=== PATIENT | female | born 1955 | race Caucasian/White ===

== ENCOUNTER 2016-12-06 05:06 | Inpatient (IN) | payer BC ==
[2016-10-21 08:00] VITALS: BMI 29.0
[2016-10-21 08:36] LABS: BASO % 0.4 %; BASO ABS # 0.02 K/uL (0-0.2); COMPLETE YES; EOS % 2.3 %; HEMATOCRIT 40.7 % (37-47); IG% 0.2 %; LYMPH % 30.7 %; LYMPH ABS # 1.62 K/uL (1.2-3.4); MEAN CELL VOLUME 88.1 fL (80-100); MEAN CORPUSCULAR HEMOGLOBIN 30.5 pg (25-34); MEAN CORPUSCULAR HGB CONC 34.6 g/dl (32-36); MEAN PLATELET VOLUME 9.2 fL (7.4-10.4); NEUT % 59.4 %; PLATELET COUNT 273 K/uL (130-400); RED BLOOD COUNT 4.62 M/uL (4.2-5.4); WHITE BLOOD COUNT 5.27 K/uL (4.8-10.8)
--- NOTE | 2016-10-21 08:37 | PAT Medication Instructions ---
Service Date Oct 21, 2016. Current Home Medication List Aspirin (Aspirin Ec), 81 MG PO HS Cholecalciferol (Vitamin D), 1 CAP PO HS Diclofenac (Voltaren), 75 MG PO HS Medication Instructions For Your Scheduled Surgery - Check with surgeon for instructions: Diclofenac (Voltaren), 75 MG PO HS - Take the following medications as scheduled the night before surgery: Cholecalciferol (Vitamin D), 1 CAP PO HS Aspirin (Aspirin Ec), 81 MG PO HS (okay per surgeon instructions) If you have any questions please call us at [phone] (Bruna Mathew PA-C) or [phone] or [phone]
[2016-10-21 08:46] LABS: PARTIAL THROMBOPLASTIN RATIO 0.9; PROTHROMBIN TIME (PATIENT) 10.5 SECONDS (9.0-12.0)
--- NOTE | 2016-10-21 09:03 | DIAGNOSTIC IMAGING REPORT ---
CHEST PREADMISSION(PA/LAT) CLINICAL HISTORY: Preoperative evaluation COMPARISON STUDY: Chest radiograph February 12, 2012 FINDINGS: Lung volumes are normal. Lungs are clear. There is no pneumothorax or pleural effusion. Cardiac size is normal. Mediastinal contours are normal. There is no evidence of pulmonary edema. IMPRESSION: No acute cardiopulmonary findings. Electronically signed by: Jack Borges M.D. 10/21/2016 9:01 AM
[2016-10-21 09:05] LABS: BUN/CREATININE RATIO 22.4 (10-20); CALCIUM 9.2 mg/dl (8.5-10.1); CREATININE 0.85 mg/dl (0.60-1.20)
--- NOTE | 2016-11-27 22:46 | HISTORY & PHYSICAL EXAMINATION ---
DATE OF ADMISSION: 12/06/2016 CHIEF COMPLAINT: Left knee pain. HISTORY OF PRESENT ILLNESS: The patient is a 61-year-old female, patient of my partner Dr. Howard, who presents for surgical treatment of her left knee. She has got a fairly long history of bilateral knee pain and discomfort, left side has been a bit worse than the right. She has been through extensive conservative treatment including injections and oral medicines which have become less successful over time. The left knee is bothering her more than the right. Pain is mostly medial. She now would like to consider surgery. PAST MEDICAL HISTORY: Noncontributory. PAST SURGICAL HISTORY: None. ALLERGIES: CODEINE WHICH CAUSES NAUSEA. ALSO REPORTS SOME NICKEL ALLERGY. CURRENT MEDICATIONS: Include: 1. Aspirin 81 mg. 2. Premarin. SOCIAL HISTORY: A 61-year-old female. She is . She does not smoke. No alcohol intake. Two children. FAMILY HISTORY: Noncontributory. REVIEW OF SYSTEMS: Negative for diabetes, neurologic problems, vascular problems, bleeding disorders. No history of chest pain or shortness of breath. No history of DVT or PE. PHYSICAL EXAMINATION: GENERAL: Reveals a healthy, pleasant middle-aged female. She looks to be in excellent health. HEENT: Benign. NECK: Supple, no lymphadenopathy. LUNGS: Clear to auscultation. HEART: Regular rate and rhythm. ABDOMEN: Soft, nontender, nondistended. EXTREMITIES: Grossly neurovascularly intact except as follows: Examination of both knees reveals the patient walks with a little bit of waddling gait. She has got varus alignment to both knees. Examination of the left knee reveals tenderness over the medial joint line. Small knee effusion. Range of motion 0-125. No instability. Miguel Ángel's causes pain but no mechanical symptoms. X-RAYS: X-ray of the left knee reveals advanced medial compartment DJD. She has got near complete loss of her medial joint space. ASSESSMENT: A 61-year-old female with advanced bilateral knee degenerative joint disease, left side more symptomatic than right. She has failed conservative treatment. We are initially considering doing a partial knee replacement, but SHE HAS GOT A NICKEL ALLERGY and we do not want to risk any reaction and we will use the Hernández \T\ Nephew zirconium total knee replacement and do a full knee replacement. The risks of cemented total knee replacement were explained to the patient including but not limited to DVT, PE, , infection, neurological injury, vascular injury, bleeding problem, pain, limited range of motion, stiffness, failure to relieve symptoms, incomplete relief of symptoms, need for further surgery in the future, fracture, leg length inequality, nerve palsy, etc. The patient understands and desires to proceed. Informed consent was obtained. As far as discharge plans, she is planning to be discharged to home and using [facility] home health program. We will use Hernández \T\ Nephew zirconium knee arthroplasty.
[2016-12-06] VITALS (10 sets, daily range): BP systolic 91–115; BP diastolic 55–81; PULSE 48–79; TEMP 36.2–36.7; O2SAT 96–100; Ht 160 cm; Wt 76.5 kg
[~2016-12-06] VITALS: Ht 160 cm; Wt 76.5 kg
[~2016-12-06 05:06] MED LIST: ASPI81TA28 PO; CHOL200010 PO; DICL-201 PO
[2016-12-06] MEDS ORDERED: SCOPOLAMINE 1.5 MG TDSY TD SCH (06:00)
[2016-12-06] MEDS ORDERED: BUPIVACAINE LIPOSOME 266 MG, BUPIVACAINE/EPINEPHRINE INJ 50 ML, SODIUM CHLORIDE 0.9% PF... INFIL SCH ×3 (06:00)
[2016-12-06] MEDS ORDERED: ACETAMINOPHEN 500 MG TAB PO SCH (06:00)
[2016-12-06] MEDS ORDERED: FAMOTIDINE 20 MG TAB PO SCH (06:00)
[2016-12-06] MEDS ORDERED: LACTATED RINGER'S 1000ML IV SCH (06:00)
[2016-12-06] MEDS ORDERED: LACTATED RINGER'S 1000ML 1,000 ML IV SCH (06:00)
[2016-12-06] MEDS ORDERED: METOCLOPRAMIDE HCL 10 MG TAB PO SCH (06:00)
[2016-12-06] MEDS ORDERED: GABAPENTIN 300 MG CAP PO SCH (06:00)
[2016-12-06] MEDS ORDERED: CEFAZOLIN 2000 MG/60 ML D5W 60 ML IV SCH (06:00)
[2016-12-06] MEDS ORDERED: BUPIVACAINE 0.5 % 5 MG/1 ML PF 10ML VIAL ONE (06:27)
[2016-12-06] MEDS ORDERED: BUPIVACAINE 0.25% 30 ML VIAL ONE (06:27)
[2016-12-06] MEDS ORDERED: FENTANYL CITRATE INJ 50 MCG/1 ML 2 ML VIAL ONE (06:28)
[2016-12-06] MEDS ORDERED: PROPOFOL IV EMULSION 10 MG/ML 20 ML VIAL IV ONE (06:28)
[2016-12-06] MEDS ORDERED: MIDAZOLAM HCL 1 MG/ML 2ML VIAL ONE ×2 (06:28→07:22)
[2016-12-06] MEDS ORDERED: LIDOCAINE HCL 2% 2 ML VIAL (20MG/ML) ONE ×2 (06:28→07:34)
[2016-12-06] MEDS ORDERED: TRANEXAMIC ACID INJ 1,000 MG in SODIUM CHLORIDE 0.9% 100ML 100 ML IV SCH ×2 (06:30→15:00)
--- NOTE | 2016-12-06 06:47 | History & Physical Bridge Note ---
H&P Re-Evaluation Bridge Note: I have examined the patient, reviewed the History & Physical and in the interval since the performance of the History & Physical I have noted the following changes of clinical significance: No changes noted
[2016-12-06] MEDS ORDERED: BACITRACIN 50000 UNIT VIAL ONE (06:48)
[2016-12-06] MEDS ORDERED: BUPIVACAINE/EPINEPHRINE 0.25% 1:200,000 30 ML VIAL ONE (06:48)
[2016-12-06] MEDS ORDERED: SODIUM CHLORIDE 0.9% PF 50 ML VIAL ONE (06:48)
[2016-12-06] MEDS ORDERED: KETAMINE HCL INJ 50 MG/ML 10 ML VIAL ONE (07:20)
[2016-12-06] MEDS ORDERED: SODIUM CHLORIDE 0.9% INJ 10 ML VIAL ONE (07:44)
[2016-12-06] MEDS ORDERED: PROMETHAZINE HCL INJ 12.5 MG in SODIUM CHLORIDE 0.9% 50ML 50 ML IV PRN (08:15)
[2016-12-06] MEDS ORDERED: FLUMAZENIL 0.1 MG/1 ML 10 ML VIAL IV PRN (08:15)
[2016-12-06] MEDS ORDERED: ONDANSETRON INJ 2 MG/ML 2 ML VIAL IV PRN (08:15)
[2016-12-06] MEDS ORDERED: ATROPINE SULFATE 0.1 MG/ML 5ML SYR IV PRN (08:15)
[2016-12-06] MEDS ORDERED: EpHEDrine SULFATE INJ 50 MG/ML AMP IV PRN (08:15)
[2016-12-06] MEDS ORDERED: NALOXONE HCL 0.4 MG/1 ML VIAL/CARP IV PRN (08:15)
--- NOTE | 2016-12-06 08:35 | [facility] Post Operative Brief Note ---
Immediate Operative Summary Operative Date Dec 06, 2016. Pre-Operative Diagnosis Left knee degenerative joint disease Post-Operative Diagnosis Left knee degenerative joint disease Procedure(s) Performed Left total knee arthroplasty Surgeon Dr. Rober Orozco Medicaid Nurse Surgeon(s) Ruddy Mcneal PA-C Estimated Blood Loss 50 cc Findings Left Knee DJD Fluids (cc crystalloids) 1000 cc Specimens A. Left knee bone and tissue Drains None Anesthesia SPinal Complication(s) None Disposition Recovery Room / PACU
[2016-12-06] MEDS ORDERED: DiphenhydrAMINE HCL 50 MG/ML VIAL IV PRN (08:45)
[2016-12-06] MEDS ORDERED: ZOLPIDEM TARTRATE 5 MG TAB PO PRN (08:45)
[2016-12-06] MEDS ORDERED: METOCLOPRAMIDE HCL INJ 5 MG/ML 2 ML VIAL IV PRN (08:45)
[2016-12-06] MEDS ORDERED: MoRPHine SULFATE 2 MG/ML CARP IV PRN (08:45)
[2016-12-06] MEDS ORDERED: BISACODYL 10 MG SUPP PR PRN (08:45)
[2016-12-06] MEDS ORDERED: ALUMINUM/MAGNESIUM/SIMETH (MAALOX MAX) 30 ML UDC PO PRN (08:45)
[2016-12-06] MEDS ORDERED: MAGNESIUM HYDROXIDE SUSP 30 ML UDC PO PRN (08:45)
--- NOTE | 2016-12-06 09:04 | DIAGNOSTIC IMAGING REPORT ---
TWO VIEWS LEFT KNEE CLINICAL HISTORY: Postoperative examination. FINDINGS: AP and crosstable lateral portable views of the left knee are obtained. A left knee arthroplasty is in near anatomic alignment. There has been undersurface remodeling of the patella. No acute fracture is seen. There are expected postoperative changes around the knee including skin clips, soft tissue edema, and subcutaneous gas. IMPRESSION: Expected postoperative changes status post left knee arthroplasty. No acute fracture is seen. Electronically signed by: Drew Gibbs M.D. 12/06/2016 9:03 AM Dictated Date/Time: 12/06/2016 9:03 AM
--- NOTE | 2016-12-06 09:08 | OPERATIVE REPORT ---
DATE OF OPERATION: 12/06/2016 PREOPERATIVE DIAGNOSIS: Left knee degenerative joint disease. POSTOPERATIVE DIAGNOSIS: Same. PROCEDURE PERFORMED: Left cemented posterior stabilized total knee arthroplasty. SURGEON: Rober Orozco M.D. PLANT BREEDER SCIENTIST: Ruddy Mcneal PA-C. COMPLICATIONS: None. ESTIMATED BLOOD LOSS: 50 mL. FLUID REPLACEMENT: 1000 mL crystalloid fluid replacement. ANESTHESIA: Spinal with adductor canal block. DRAINS: None. SPECIMENS: Left knee sent for pathology. TOURNIQUET TIME: 56 minutes at 300 mmHg. OPERATIVE INDICATIONS: The patient is a 61-year-old female who has had a long history of bilateral knee pain and discomfort, left side greater than right. She has been through extensive conservative treatment. She continued to have persistent pain mostly localized in the medial side of her knee. The patient failed conservative treatment and elected to proceed with total knee arthroplasty. The patient does have a nickel allergy and we used the Hernández \T\ Nephew zirconium total knee arthroplasty as a result of this. OPERATIVE FINDINGS: Operative findings revealed advanced left knee DJD. She had grade 4 [id number] disease of the trochlea as well as the medial femoral condyle and medial tibial plateau pretty extensively. Moderate size joint effusion. She had osteophytes primarily in the medial and posteromedial compartments. OPERATIVE IMPLANTS: Operative implants consisted of: 1. Hernández \T\ Nephew Journey size 4 left posterior stabilized zirconium femoral component. 2. Hernández \T\ Nephew size 2 tibial tray. 3. A 12 mm posterior stabilized polyethylene insert. 4. A 29 x 9 all poly patella. OPERATION AND FINDINGS: OPERATIVE PROCEDURE: The patient was taken to the operating room, identified and placed on the operating table in supine position. All contact areas were appropriately padded. IV antibiotics were provided by anesthesia team. A spinal anesthetic and adductor canal block had been provided in the holding area. Rea catheter was placed in sterile fashion. The left thigh tourniquet was then placed and left lower extremity was then prepped and draped in the usual sterile fashion. The left leg was elevated and exsanguinated with Esmarch and tourniquet was placed at 300 mmHg. An anterior approach of the left knee was then performed through a longitudinal incision centered over the patella. Sharp dissection was carried through the subcutaneous tissues down to the level of the extensor mechanism. A medial parapatellar arthrotomy incision was made. Some subperiosteal dissection was carried out medially. The fat pad was resected from beneath the patellar tendon. The lateral patellofemoral ligament was released. The patella was everted and the knee was flexed. The osteophytes were taken off the distal femur. The ACL and PCL were then released from the distal femur. The tibia subluxated anteriorly. The external tibial alignment jig was then placed in the anterior face of the tibia and adjusted 8 mm medially. Proximal tibial cut was made to remove about 2 mm of bone from the most deficient aspect of the medial tibial plateau. Some osteophytes were taken off medial and posteromedially. The tibia was sized to a size 2. Attention was then drawn to the femur. The distal femur was entered with a sharp drill bit. Intramedullary canal was suctioned. A left 5 degree valgus cutting guide was placed and distal femoral cutting block was pinned in place. Distal femoral cutting block was adjusted take an additional 2 mm of bone off the distal femur then the femur was cut. The femur was then sized. This actually sized to between a 5 and a 6. We did downsize this to a size 4 in order to fit the tibial tray. We did adjust this. The AP cutting block was pinned parallel to the epicondylar axis, which was 3 degrees of external rotation. The anterior cut, anterior cord, posterior cut, posterior chamfer, and then the anterior chamfer cuts were made. The AP cutting block was then removed. The osteophytes posteriorly were removed. The remnants of the medial and lateral menisci were removed. A trial femoral component was placed. The box cutting tool was placed and the box cut was made. The trochlear component was then placed. The tibial tray was then pinned in maximum external rotation and the punch was used to create the defect in proximal tibia for the tibial tray. We then trialed the knee and the 12 mm insert fit most appropriately. Attention was then drawn to the patella. The patella was cleaned of all soft tissues. The patella thickness measured 20 mm cut down to 12. It was sized to a size 29 patella. Lug holes were drilled for a 29 patella. Lateral osteophyte was removed. Patella button was placed. Knee was taken through range of motion and the patella tracked nicely with no thumbs test. Attention was then drawn toward placement of permanent components. All trial components were removed. Bone plug was placed in the distal femur to limit blood loss. A double batch of Palacos G cement was mixed. A left size 4 posterior stabilized femoral component was placed followed by a size 2 tibial tray, a 12 mm posterior stabilized polyethylene insert, 29 x 9 all poly patella. All extraneous cement was removed. The knee was brought out into full extension until cement hardened. A final cement check was then performed. The pericapsular tissues were then injected with 100 mL of a combination of 20 mL of Exparel, 30 mL of normal saline, and 50 mL of 0.25% Marcaine with epinephrine. The patient did receive 1 gram of tranexamic acid. The tourniquet was then let down for final tourniquet time of 56 minutes. Hemostasis was assured with use of electrocautery. The wound was once again irrigated. The extensor mechanism was then closed with a combination of #1 PDS suture and #1 Vicryl suture in a dchdyc-uh-ejybi fashion. Extensor mechanism was checked and found to be intact. Subcutaneous tissues were then closed with 2-0 Dexon suture in a buried interrupted fashion. Skin was closed skin hussein. Leg was then cleaned and dried and a sterile dressing of Xeroform, 4 x 4, sterile cast padding and Chiki bandage were applied. The patient was then transferred to the recovery room in stable condition. The patient tolerated the procedure well with no complications. All needle and sponge counts were correct at the end of the operation. I attest to the content of the Intraoperative Record and any orders documented therein. Any exceptio ns are noted below.
--- NOTE | 2016-12-06 09:18 | Anesthesiology Progress Note ---
Anesthesia Post Op Note Date & Time Dec 06, 2016 at 09:18 Vital Signs Pain Intensity: 0 Vital Signs Past 12 Hours Date Time Temp Pulse Resp B/P Pulse Ox O2 Delivery O2 Flow Rate FiO2 12/06/16 09:11 69 18 92/55 94 Nasal Cannula 2 12/06/16 09:01 36.4 69 16 99/61 96 Nasal Cannula 2 12/06/16 09:00 77 17 106/65 95 Room Air 12/06/16 08:50 70 18 105/63 94 Room Air 12/06/16 08:43 36.1 76 18 110/58 95 Room Air 12/06/16 05:41 36.7 79 18 115/81 97 Room Air Notes Mental Status: alert / awake / arousable, participated in evaluation Pt Amnestic to Procedure: Yes Nausea / Vomiting: adequately controlled Pain: adequately controlled Airway Patency, RR, SpO2: stable & adequate BP & HR: stable & adequate Hydration State: stable & adequate Neuraxial Anesthesia: was administered, sensory block is resolving Anesthetic Complications: no major complications apparent
[2016-12-06] MEDS: ONDANSETRON INJ 2 MG/ML 2 ML VIAL IV PRN (10:22)
[2016-12-06] MEDS: D5W AND 1/2NSS + 20MEQ KCL 1,000 ML IV SCH ×2 (11:01→20:43)
[2016-12-06] MEDS: KETOROLAC TROMETHAMINE 30 MG/ML VIAL IV. SCH ×3 (11:31→23:32)
[2016-12-06] MEDS: FERROUS GLUCONATE 324 MG TAB PO SCH ×2 (12:30→17:38)
[2016-12-06] MEDS: DOCUSATE SODIUM 100 MG CAP PO SCH ×2 (12:45→20:44)
[2016-12-06] MEDS: TAPENTADOL ER 50 MG TABCR PO SCH ×2 (12:46→20:44)
[2016-12-06] MEDS: PANTOprazole SOD 40 MG TAB PO SCH (12:46)
[2016-12-06] MEDS: MULTIVITAMIN TAB PO SCH (12:46)
[2016-12-06] MEDS: ASPIRIN 325 MG ECTAB PO SCH ×2 (12:46→20:43)
[2016-12-06] MEDS: ACETAMINOPHEN 500 MG TAB PO SCH ×2 (14:00→20:44)
[2016-12-06] MEDS: CEFAZOLIN IV 1,000 MG in DEXTROSE 5% 50ML 50 ML IV SCH ×2 (14:47→22:21)
[2016-12-06] MEDS ORDERED: CHECK SCOPOLAMINE PATCH PLACEMENT SCH (16:00)
[2016-12-06] MEDS: OXYCODONE HCL IR 5 MG TAB (IMMEDIATE RELEASE) PO PRN (16:51)
[2016-12-06] MEDS: CHOLECALCIFEROL 1000 INTER.UNIT TAB PO SCH (20:44)
[2016-12-07 03:25] VITALS: BP 93/56; PULSE 63; TEMP 36.8; O2SAT 96
[2016-12-07] MEDS: ACETAMINOPHEN 500 MG TAB PO SCH ×3 (05:31→20:39)
[2016-12-07] MEDS: KETOROLAC TROMETHAMINE 30 MG/ML VIAL IV. SCH ×4 (05:31→23:43)
[2016-12-07 06:31] LABS: HEMATOCRIT 35.8 % (37-47); MEAN CELL VOLUME 89.9 fL (80-100); MEAN CORPUSCULAR HEMOGLOBIN 29.9 pg (25-34); MEAN CORPUSCULAR HGB CONC 33.2 g/dl (32-36); MEAN PLATELET VOLUME 9.5 fL (7.4-10.4); PLATELET COUNT 204 K/uL (130-400); RED BLOOD COUNT 3.98 M/uL (4.2-5.4); WHITE BLOOD COUNT 7.87 K/uL (4.8-10.8)
[2016-12-07] MEDS: D5W AND 1/2NSS + 20MEQ KCL 1,000 ML IV SCH (06:38)
[2016-12-07] MEDS: ONDANSETRON INJ 2 MG/ML 2 ML VIAL IV PRN (06:39)
[2016-12-07 07:02] LABS: BUN/CREATININE RATIO 17.2 (10-20); CALCIUM 8.6 mg/dl (8.5-10.1); CREATININE 0.92 mg/dl (0.60-1.20); POTASSIUM 4.3 mmol/L (3.5-5.1)
[2016-12-07 07:42] VITALS: BP 104/66; PULSE 59; TEMP 36.8; O2SAT 95
--- NOTE | 2016-12-07 08:40 | PROGRESS NOTE ---
DATE: 12/07/2016 DATE: 12/07/2016. SUBJECTIVE: A 61-year-old female postop day #1 from left knee replacement. She is doing well. Pain is controlled. Denies any chest pain or shortness of breath. Not feeling dizzy or lightheaded. OBJECTIVE: VITAL SIGNS: Temperature 36.8. Vital signs stable. PHYSICAL EXAMINATION: GENERAL: Reveals a healthy, pleasant middle-aged female. She is sitting up in bed, looks pretty comfortable. LUNGS: Clear to auscultation. HEART: Regular rate and rhythm. ABDOMEN: Soft, nontender, nondistended. EXTREMITY EXAMINATION: Grossly neurovascularly intact except as follows: Examination of the left lower extremity reveals the leg to be well aligned. Her dressing is clean, dry and intact. She can dorsiflex and plantarflex her foot appropriately. She is neurologically intact. LABORATORY DATA: Hemoglobin is 11.9, hematocrit 35.8. Electrolytes are stable. ASSESSMENT: A 61-year-old white female postop day 1 from left knee replacement doing pretty well. Pain is controlled. PLAN: 1. DVT prophylaxis including thigh-high TEDs, SCDs, and aspirin twice a day. 2. PT/OT. Weightbearing as tolerated. Left total knee protocol. 3. Pain control. Doing well with current pain regimen. 4. Disposition: She is going to be discharged to home with some home health once adequately recovered.
[2016-12-07] MEDS: PANTOprazole SOD 40 MG TAB PO SCH (08:48)
[2016-12-07] MEDS: ASPIRIN 325 MG ECTAB PO SCH ×2 (08:48→20:38)
[2016-12-07] MEDS: DOCUSATE SODIUM 100 MG CAP PO SCH ×2 (08:48→20:39)
[2016-12-07] MEDS: FERROUS GLUCONATE 324 MG TAB PO SCH ×3 (08:49→17:41)
[2016-12-07] MEDS: MULTIVITAMIN TAB PO SCH (08:49)
[2016-12-07] MEDS: TAPENTADOL ER 50 MG TABCR PO SCH ×2 (08:51→20:38)
[2016-12-07 09:45] VITALS: BP 121/65; PULSE 55
[2016-12-07] MEDS: OXYCODONE HCL IR 5 MG TAB (IMMEDIATE RELEASE) PO PRN (10:21)
[2016-12-07 11:00] VITALS: BP 99/65; PULSE 68; TEMP 36.9; O2SAT 95
[2016-12-07 15:28] VITALS: BP 117/71; PULSE 72; TEMP 36.9; O2SAT 97
[2016-12-07] MEDS ORDERED: MORP15TA19 PO (18:14)
[2016-12-07] MEDS ORDERED: OXYC-57 PO (18:14)
[2016-12-07] MEDS ORDERED: ASPEC325 PO (18:14)
[2016-12-07] MEDS ORDERED: PROM25TA9 PO (18:14)
--- NOTE | 2016-12-07 18:16 | Discharge Instructions ---
Discharge Instructions Admission Reason for Admission: Left Knee Degenerative Joint Disease Discharge Discharge Diagnosis / Problem: Left Knee Replacement Discharge Goals Goal(s): Decrease discomfort, Improve function, Increase independence, Improve disease control, Therapeutic intervention Activity Recommendations Activity Limitations: per Instructions/Follow-up section Weightbearing Status: Left weightbearing . Instructions / Follow-Up Instructions / Follow-Up ACTIVITY RECOMMENDATIONS: Physical Therapy: * You will go to physical therapy three times each week for four to six weeks after your surgery in order to regain your knee range of motion and to retrain your knee to work properly. * It is just as important to make sure you are getting your knee perfectly straight as it is to regain your knee bend. * Taking a pain pill an hour before therapy can help you have a more productive and comfortable therapy session. Home Exercise: * You were shown a series of exercises (heel props, heel slides, etc.) in the hospital. Do these exercises three to four times each day including the exercises you were shown in physical therapy. Walking: * Get up and walk several times each day. For the first four weeks, try not to stand or walk for more than one hour at a time. If you do stand or walk for more than one hour, you will not hurt anything, but your knee and leg will likely swell. * As you feel comfortable, you may change from the walker or crutches to a cane and then to independent walking. MEDICATIONS: New Medicine: * You will likely be taking one or more of these medications: 1. MS Contin - A long-acting pain medication. Take 1 tablet twice a day for the first ten days to decrease your baseline level of pain. 2. Percocet - A quick and shorter-acting pain medication. Take one to two tablets every four to six hours to lessen your pain. 3. Aspirin - Thins your blood to lessen the chance of forming a blood clot. * The most common side effects of pain medicine and iron are nausea and constipation. If nausea or constipation is too much of a problem or if you have any questions about your new medicines or doses, call [facility] at . We will try to help you manage these issues. VERY IMPORTANT TO READ AND REVIEW" Pain: * The immediate post-operative period after knee replacement surgery is often quite painful. * You are given a prescription for pain medicine. You should take it, as directed, when you need it, especially before physical therapy and before going to bed. Pain that interferes with sleep is very common and can last several months. * You will likely need pain medicine for the first four to six weeks. It will not stop all of the pain. The pain will lessen and as you feel better, you may change to milder pain medicine such as Tylenol. * The most common side effects of pain medicine are nausea and constipation, so don't take more than you need. SPECIAL CARE INSTRUCTIONS: TEDs/Elastic Stockings: * The white elastic stockings help limit swelling and prevent blood clots from forming in your legs. The more you wear them, the more they work. * Wear them for six weeks after knee replacement surgery and four weeks after partial knee replacement. Prevention of Infection: * Take antibiotics one hour before any dental cleaning, dental work, urological procedure, gastrointestinal procedure or any invasive surgery in order to prevent your new joint from getting infected. * You may get the antibiotics from the doctor performing the procedure or you may call our office at before and we will call in a prescription to the pharmacy of your choice. Things to Watch For: * Drainage from the incision site that occurs more than one week after your surgery. * Severely increased knee/leg pain or swelling. * Increased redness at the incision site. * Fever above 102 degrees Fahrenheit. * Unusual chest pain or shortness of breath. * Unusual pain or burning with urination. Call [facility] at with any of the above problems or if you have any questions about your medicines or recovery. FOLLOW UP VISIT: Make an appointment to see your doctor for approximately two weeks after surgery for a progress check and staple removal by calling the office at . Current Hospital Diet Patient's current hospital diet: Regular Diet Discharge Diet Recommended Diet: Regular Diet Procedures Procedures Performed: Left total knee arthroplasty Pending Studies Studies pending at discharge: no Medical Emergencies . Who to Call and When: Medical Emergencies: If at any time you feel your situation is an emergency, please call [phone] immediately. . Non-Emergent Contact Non-Emergency issues call your: Surgeon . "Provider Documentation" section prepared by Rober Orozco. VTE Core Measure Inpt VTE Proph given/why not?: Other Anticoagulation, T.E.D. Stockings, SCD's
[2016-12-07] MEDS: CHOLECALCIFEROL 1000 INTER.UNIT TAB PO SCH (20:39)
[2016-12-07 22:55] VITALS: BP 119/71; PULSE 79; TEMP 36.9; O2SAT 94
[2016-12-08] MEDS: ACETAMINOPHEN 500 MG TAB PO SCH (05:54)
[2016-12-08] MEDS: KETOROLAC TROMETHAMINE 30 MG/ML VIAL IV. SCH (05:54)
[2016-12-08 07:32] VITALS: BP 110/74; PULSE 73; TEMP 36.9; O2SAT 96
[2016-12-08] MEDS: OXYCODONE HCL IR 5 MG TAB (IMMEDIATE RELEASE) PO PRN (07:42)
--- NOTE | 2016-12-08 08:32 | PROGRESS NOTE ---
DATE: 12/08/2016 SUBJECTIVE: A 61-year-old female postop day #2 from a left knee replacement. She is doing pretty well. Pain is controlled. She is having a little bit of nausea. No chest pain or shortness of breath. Not feeling dizzy or lightheaded. OBJECTIVE: VITAL SIGNS: Temperature 36.9. Vital signs stable. GENERAL: Physical examination reveals a pleasant, middle-aged female. EXTREMITIES: Examination of the left leg reveals the dressing to be clean, dry and intact. Leg is well aligned. No significant drainage. Calf is soft and supple. She can dorsiflex and plantarflex her foot appropriately. ASSESSMENT: A 61-year-old female postop day #2 from left knee replacement, doing pretty well. PLAN: 1. DVT prophylaxis including thigh-high TEDs, SCDs, and aspirin twice a day. 2. PT/OT. Weightbearing as tolerated. Left total knee protocol. 3. Pain control, doing pretty well with current pain regimen. We will make sure that she gets some Phenergan for nausea. 4. Disposition: Plan to discharge to home with home health after therapy today.
[2016-12-08] MEDS: MULTIVITAMIN TAB PO SCH (08:39)
[2016-12-08] MEDS: DOCUSATE SODIUM 100 MG CAP PO SCH (08:39)
[2016-12-08] MEDS: FERROUS GLUCONATE 324 MG TAB PO SCH (08:39)
[2016-12-08] MEDS: ASPIRIN 325 MG ECTAB PO SCH (08:39)
[2016-12-08] MEDS: PANTOprazole SOD 40 MG TAB PO SCH (08:39)
[2016-12-08] MEDS: TAPENTADOL ER 50 MG TABCR PO SCH (08:41)
[2016-12-08 09:00] VITALS: BP 110/74; PULSE 73; TEMP 36.9; O2SAT 96
--- NOTE | 2016-12-11 14:21 | DISCHARGE SUMMARY ---
ADMITTING PHYSICIAN AND SURGEON: Dr. Orozco. ADMITTING DIAGNOSIS: Left knee degenerative joint disease. SURGERY PERFORMED: Left total knee arthroplasty. SECONDARY DIAGNOSES: Noncontributory. CONSULTS: None obtained. HISTORY AND PHYSICAL EXAMINATION: Well documented in patient's chart. HOSPITAL COURSE: The patient was admitted on 12/06/2016 underwent total knee arthroplasty, tolerated the procedure well. There were no complications. She was transferred to the PACU postoperatively and later to the orthopedic floor for further care. She was given Ancef for antibiotic prophylaxis, ANTONIO stockings, SCDs and aspirin for DVT prophylaxis. Hemoglobin, hematocrit and vital signs were monitored during her hospital stay and remained stable. She developed some mild postoperative anemia, did not require any blood transfusions. There were no complications. By postoperative day 2, she was tolerating a general diet, pain was controlled with oral pain medicine. She was participating in physical therapy and had no signs or symptoms of deep vein thrombosis. On postop day 2, she was discharged home in good condition, set up with home health services, given new prescriptions for aspirin 325 mg b.i.d., MS Contin, Percocet and Phenergan. She can continue her home medicines with the exception of her home dose of aspirin which was changed. Continue physical therapy, weightbearing as tolerated, ANTONIO stockings. Follow up in 10-12 days or sooner if there are problems or concerns.
[2017-04-28] MEDS ORDERED: ASPI81TA28 PO (08:33)
== END 2016-12-08 09:30 | disposition home health service (06) | DRG 470 ==
LOC: ENRESERVDT → ENRESERVTM → C.ACU 05:06 → C.3E 06:20
PROVIDERS: ADMIT Orthopaedic Surgery Sports Medicine; ATTEND Orthopaedic Surgery Sports Medicine
PROC: 0SRD0J9 Replacement of Left Knee Joint with Synthetic Substitute, Cemented, Open Approach (ICD-10-PCS; principal; 2016-12-06 07:00)
DX: M17.12 Unilateral primary osteoarthritis, left knee (principal); Z79.82 Long term (current) use of aspirin; Z79.890 Hormone replacement therapy; Z88.5 Allergy status to narcotic agent; Z91.09 Other allergy status, other than to drugs and biological substances

== ENCOUNTER → 2017-02-19 | Outpatient (CLI) | payer BC ==
[~2017-02-19] MED LIST changes: +ACET-24 PO; +ASPEC325 PO; +HYDR2TAB3 PO
== END | disposition home or self-care (01) ==
LOC: C.PAPS 11:02
PROVIDERS: ATTEND Obstetrics & Gynecology
DX: Z01.419 Encounter for gynecological examination (general) (routine) without abnormal findings (principal)

== ENCOUNTER → 2017-02-26 | Outpatient (CLI) | payer BC ==
--- NOTE | 2017-02-26 13:18 | MAMMOGRAPHY REPORT ---
BILATERAL DIGITAL SCREENING MAMMOGRAM TOMOSYNTHESIS WITH CAD: 02/26/2017 CLINICAL HISTORY: Routine screening. Patient has no complaints. TECHNIQUE: Breast tomosynthesis in addition to standard 2D mammography was performed. Current study was also evaluated with a Computer Aided Detection (CAD) system. COMPARISON: Comparison is made to exams dated: 02/23/2016 mammogram, 01/26/2014 mammogram, 02/21/2015 [facility] mogram, 01/20/2013 mammogram, 07/21/2012 ultrasound, and 07/21/2012 mammogram - [facility] nt. BREAST COMPOSITION: There are scattered areas of fibroglandular density in both breasts. FINDINGS: No suspicious masses, calcifications, or areas of architectural distortion are noted in e ither breast. There has been no significant interval change compared to prior exams. IMPRESSION: ACR BI-RADS CATEGORY 1: NEGATIVE There is no mammographic evidence of malignancy. A 1 year screening mammogram is recommended. The p atient will receive written notification of the results. Approximately 10% of breast cancers are not detected with mammography. A negative mammographic repor t should not delay biopsy if a clinically suggestive mass is present. Cheri Pemberton M.D. ah/:02/26/2017 07:59:24 Precision Inspector: Ashlyn ALONZO(R)(M), [facility] letter sent: Normal 1/2 BI-RADS Code: ACR BI-RADS Category 1: Negative
== END | disposition home or self-care (01) ==
LOC: C.MAMM 07:30
PROVIDERS: ATTEND Obstetrics & Gynecology
DX: Z12.31 Encounter for screening mammogram for malignant neoplasm of breast (principal)

== ENCOUNTER → 2017-04-21 | Outpatient (CLI) | payer BC ==
[~2017-04-21] MED LIST changes: +DLD2 PO; -HYDR2TAB3 PO
== END | disposition home or self-care (01) ==
LOC: C.LAB1850 08:22
PROVIDERS: ATTEND Orthopaedic Surgery Sports Medicine
DX: Z01.812 Encounter for preprocedural laboratory examination (principal); Z01.810 Encounter for preprocedural cardiovascular examination; E78.00 Pure hypercholesterolemia, unspecified; I67.9 Cerebrovascular disease, unspecified

== ENCOUNTER 2017-05-06 05:20 | Inpatient (IN) | payer BC ==
[2017-04-28 08:33] VITALS: BMI 28.0
--- NOTE | 2017-05-01 10:04 | History and Physical ---
History & Physical Documentation Date May 01, 2017. Chief Complaint Right knee pain HPI (Knee Pain) Pain Location: Anterior knee, Medial knee Duration: Years Adversely Affecting: ADL's, Recreation Symptoms Include: + Pain, + Giving way History of Injury/Trauma: No Non-Surgical Therapies: Behavior modification, Exercise program Mechanical Assistive Devices: none Joint Injection: Steroid Additional Notes: Failed NSAID tx Past Medical/Surgical History Left TKR - 12/06/16 Additional History Hepatic Disease: No Endocrine Disorder: No Kidney Disease: No Hypertension: No Heart Disease: No Bleeding Tendencies: No Infectious Diseases: No Family History No Heart disease, No Pulmonary disease, No Anesthesia difficulties, No Bleeding tendencies Social History Smoking Status: Never Smoker Smokeless Tobacco Use: No Alcohol Use: none Drug Use: none Marital Status: Housing status: lives with family Allergies Coded Allergies: Nickel (Verified Allergy, Mild, FROM JEWELRY(CAN ONLY WEAR 14k) HAD RED AND BLISTERY AREAS, 04/28/17) Chlorhexidine (Verified Allergy, Unknown, RASH, 04/28/17) PATIENT DEVELOPED RASH FROM CHG WIPES Codeine (Verified Adverse Reaction, Mild, NAUSEA AND VOMITTING, 04/28/17) Home Medications Scheduled Aspirin (Aspirin Ec), 81 MG PO QAM Cholecalciferol (Vitamin D), 2 CAP PO HS Diclofenac (Voltaren), 75 MG PO HS Review of Systems Constitutional: No fever, No chills, No sweats, No weight loss, No weakness, No fatigue, No problem reported Eyes: No worsening of vision, No eye pain, No redness, No discharge, No diplopia, No problem reported ENT: No hearing loss, No unusual epistaxis, No nasal symptoms, No sore throat, No tinnitus, No dental problems, No trouble swallowing, No problem reported Respiratory: No cough, No sputum, No wheezing, No shortness of breath, No dyspnea on exertion, No dyspnea at rest, No hemoptysis, No problem reported Cardiovascular: No chest pain, No orthopnea, No PND, No edema, No claudication , No palpitations, No problem reported Abdomen: No pain, No nausea, No vomiting, No diarrhea, No constipation, No GI bleeding, No problem reported Musculoskeletal: No joint pain, No muscle pain, No swelling, No calf pain, No problem reported Genitourinary - Female: No dysuria, No urinary frequency, No urinary urgency, No urinary incontinence, No urinary retention, No hematuria, No dysmenorrhea, No menorrhagia, No metrorrhagia, No rash, No vaginal bleeding, No vaginal discharge, No vaginal itching, No vulvodynia, No , No problem reported Psychiatric: No depression symptoms, No anhedonism, No anxiety, No insomnia, No substance abuse, No problem reported Endocrine: No fatigue, No excessive thirst, No excessive urination, No problem reported Hematologic / Lymphatic: No abnormal bleeding/bruising, No clotting problems, No swollen lymph nodes, No night sweats, No problem reported Integumentary: No rash, No itch, No new/changing skin lesions, No color change , No bleeding, No problem reported Physical Exam Skin: warm/dry Eyes: normal inspection ENT: normal ENT inspection Head: normocephalic Neck: supple, no adenopathy Respiratory/Chest: lungs clear Cardiovascular: regular rate, rhythm Abdomen / GI: normal bowel sounds Back: normal inspection Neurovascular: Normal perfusion, Normal pedal pulses, Normal sensation, Normal motor strength Neurologic/Psych: no motor/sensory deficits Physical Exam (Knee) Inspection: + Effusion Gait: + Limp Range of Motion: With crepitation (5-120 degrees) Alignment: + Genu varum Stability: No Eder, No Anterior drawer, No Varus laxity, No Rotational laxity, No Posterior drawer, No Valgus laxity, No pertinent finding Tenderness: Medial joint line Radiology Plain Films: Osteophytes, Subchondral sclerosis Plain Films Joint Space: [id number], Severe narrowing Diagnosis & Plan Diagnosis & Plan (1) Right Knee DJD Plan: TKA (Right TKR)
[~2017-05-06] VITALS: Ht 160 cm; Wt 73.5 kg
[2017-05-06] VITALS (8 sets, daily range): BP systolic 91–139; BP diastolic 58–77; PULSE 45–75; TEMP 36.3–36.7; O2SAT 95–100; Ht 160 cm; Wt 73.5 kg
[~2017-05-06 05:20] MED LIST changes: -ACET-24 PO; -ASPEC325 PO; -DLD2 PO
[2017-05-06] MEDS ORDERED: FAMOTIDINE 20 MG TAB PO SCH (06:00)
[2017-05-06] MEDS ORDERED: SCOPOLAMINE 1.5 MG TDSY TD SCH (06:00)
[2017-05-06] MEDS ORDERED: CEFAZOLIN 2000 MG/60 ML D5W 60 ML IV SCH (06:00)
[2017-05-06] MEDS ORDERED: LACTATED RINGER'S 1000ML IV SCH (06:00)
[2017-05-06] MEDS ORDERED: LACTATED RINGER'S 1000ML 1,000 ML IV SCH (06:00)
[2017-05-06] MEDS ORDERED: ACETAMINOPHEN 500 MG TAB PO SCH (06:00)
[2017-05-06] MEDS ORDERED: METOCLOPRAMIDE HCL 10 MG TAB PO SCH (06:00)
[2017-05-06] MEDS ORDERED: GABAPENTIN 300 MG CAP PO SCH (06:00)
[2017-05-06] MEDS ORDERED: BUPIVACAINE 0.5 % 5 MG/1 ML PF 10ML VIAL ONE (06:25)
[2017-05-06] MEDS ORDERED: ROPIVACAINE 0.5% 5 MG/ML 30 ML VIAL ONE (06:25)
[2017-05-06] MEDS ORDERED: TRANEXAMIC ACID INJ 1,000 MG in SODIUM CHLORIDE 0.9% 100ML 100 ML IV SCH ×2 (06:30→15:00)
[2017-05-06] MEDS ORDERED: PROPOFOL IV EMULSION 10 MG/ML 20 ML VIAL IV ONE (06:32)
[2017-05-06] MEDS ORDERED: MIDAZOLAM HCL 1 MG/ML 2ML VIAL ONE (06:33)
[2017-05-06] MEDS ORDERED: FENTANYL CITRATE INJ 50 MCG/1 ML 2 ML VIAL ONE (06:33)
[2017-05-06] MEDS ORDERED: SODIUM CHLORIDE 0.9% PF 50 ML VIAL ONE (06:35)
[2017-05-06] MEDS ORDERED: BACITRACIN 50000 UNIT VIAL ONE (06:35)
[2017-05-06] MEDS ORDERED: BUPIVACAINE/EPINEPHRINE 0.25% 1:200,000 30 ML VIAL ONE (06:35)
[2017-05-06] MEDS ORDERED: BUPIVACAINE LIPOSOME 1/3% 266 MG/20 ML VIAL INFIL ONE (06:35)
[2017-05-06] MEDS ORDERED: ONDANSETRON INJ 2 MG/ML 2 ML VIAL ONE (07:34)
[2017-05-06] MEDS ORDERED: EpHEDrine SULFATE INJ 50 MG/ML AMP IV PRN (08:00)
[2017-05-06] MEDS ORDERED: ATROPINE SULFATE 0.1 MG/ML 5ML SYR IV PRN (08:00)
[2017-05-06] MEDS ORDERED: ONDANSETRON INJ 2 MG/ML 2 ML VIAL IV PRN ×2 (08:00→09:00)
[2017-05-06] MEDS ORDERED: HYDROmorphone INJ 1 MG/ML SYR IV PRN (08:00)
--- NOTE | 2017-05-06 08:51 | [facility] Post Operative Brief Note ---
Immediate Operative Summary Operative Date May 06, 2017. Pre-Operative Diagnosis Right Knee Degenerative Joint Disease Post-Operative Diagnosis Right Knee Degenerative Joint Disease Procedure(s) Performed Right Total Knee Arthroplasty Surgeon Dr. Orozco Certified Endoscopy Technician Surgeon(s) LE Garcia Estimated Blood Loss 50 ml Findings Right Knee DJD Fluids (cc crystalloids) 1200 cc Specimens A. Right Knee Bone and Tissue Drains None Anesthesia Spinal Complication(s) None Disposition Recovery Room / PACU
[2017-05-06] MEDS ORDERED: DiphenhydrAMINE HCL 50 MG/ML VIAL IV PRN (09:00)
[2017-05-06] MEDS ORDERED: BISACODYL 10 MG SUPP PR PRN (09:00)
[2017-05-06] MEDS ORDERED: MoRPHine SULFATE 2 MG/ML CARP IV PRN (09:00)
[2017-05-06] MEDS ORDERED: ZOLPIDEM TARTRATE 5 MG TAB PO PRN (09:00)
[2017-05-06] MEDS ORDERED: HYDROmorphone HCL 2 MG TAB PO PRN (09:00)
[2017-05-06] MEDS ORDERED: SILVER SULFADIAZINE 1% CR 50 GM JAR EXT PRN (09:00)
[2017-05-06] MEDS ORDERED: METOCLOPRAMIDE HCL INJ 5 MG/ML 2 ML VIAL IV PRN (09:00)
[2017-05-06] MEDS ORDERED: MAGNESIUM HYDROXIDE SUSP 30 ML UDC PO PRN (09:00)
[2017-05-06] MEDS ORDERED: ALUMINUM/MAGNESIUM/SIMETH (MAALOX MAX) 30 ML UDC PO PRN (09:00)
[2017-05-06] MEDS ORDERED: HYDROmorphone INJ 0.5 MG/0.5 ML SYR IV PRN (09:00)
--- NOTE | 2017-05-06 09:16 | DIAGNOSTIC IMAGING REPORT ---
RIGHT KNEE 1 OR 2 VIEWS ROUTINE CLINICAL HISTORY: AP/LATERAL IN PACU RIGHT KNEE Right knee replacement COMPARISON: None. DISCUSSION: Total right knee replacement. Good contact between prosthetic and the Bone. Surgical drains are in position. Expected soft tissue postoperative change IMPRESSION: Anatomic alignment status post total right knee replacement The above report was generated using voice recognition software. It may contain grammatical, syntax or spelling errors. Electronically signed by: Luis Duran M.D. 05/06/2017 9:14 AM Dictated Date/Time: 05/06/2017 9:14 AM
--- NOTE | 2017-05-06 09:51 | Anesthesiology Progress Note ---
Anesthesia Post Op Note Date & Time May 06, 2017 at 09:51 Vital Signs Pain Intensity: 0 Vital Signs Past 12 Hours Date Time Temp Pulse Resp B/P (MAP) Pulse Ox O2 Delivery O2 Flow Rate FiO2 05/06/17 09:30 36.7 57 14 101/60 99 Nasal Cannula 2 05/06/17 09:20 70 17 95/60 96 Nasal Cannula 2 05/06/17 09:10 67 15 95/54 97 Nasal Cannula 2 05/06/17 09:00 76 16 99/56 96 Nasal Cannula 2 05/06/17 08:54 36.8 84 16 105/52 95 Nasal Cannula 2 05/06/17 05:50 36.7 75 18 128/77 95 Room Air Notes Mental Status: alert / awake / arousable, participated in evaluation Pt Amnestic to Procedure: Yes Nausea / Vomiting: adequately controlled Pain: adequately controlled Airway Patency, RR, SpO2: stable & adequate BP & HR: stable & adequate Hydration State: stable & adequate Anesthetic Complications: no major complications apparent
[2017-05-06] MEDS: D5W AND 1/2NSS + 20MEQ KCL 1,000 ML IV SCH ×2 (11:06→20:24)
[2017-05-06] MEDS: FERROUS GLUCONATE 324 MG TAB PO SCH ×2 (12:19→17:49)
[2017-05-06] MEDS: PANTOprazole SOD 40 MG TAB PO SCH (12:20)
[2017-05-06] MEDS: MULTIVITAMIN TAB PO SCH (12:20)
[2017-05-06] MEDS: ASPIRIN 325 MG ECTAB PO SCH ×2 (12:20→20:27)
[2017-05-06] MEDS: DOCUSATE SODIUM 100 MG CAP PO SCH ×2 (12:20→20:27)
[2017-05-06] MEDS: KETOROLAC TROMETHAMINE 30 MG/ML VIAL IV. SCH ×2 (12:21→17:50)
--- NOTE | 2017-05-06 13:41 | Progress Note ---
Orthopedic SOAP Note Subjective Date of Service: May 06, 2017. Post OP Day: Post-op Right TKR Reports: feeling well, pain controlled w PO medications Additional Notes: No significant pain. No chest pain or SOB. Sleeping when I went into the room this afternoon. Objective calves soft nontender, N/V intact, capillary refill less than 2 sec., dressing C /D/I, A&O x3, toes mobile, CMS intact Date Time Temp Pulse Resp B/P (MAP) Pulse Ox O2 Delivery O2 Flow Rate FiO2 05/06/17 12:27 36.3 55 18 101/61 (74) 99 Nasal Cannula 2.0 05/06/17 11:38 36.3 45 17 93/59 (70) 100 Nasal Cannula 2.0 05/06/17 10:47 36.3 47 18 91/58 (69) 100 Nasal Cannula 2.0 05/06/17 10:09 36.4 54 17 139/60 (86) 96 Nasal Cannula 2.0 05/06/17 09:45 36.4 64 14 98/60 (73) 99 Nasal Cannula 2.0 05/06/17 09:45 99 Nasal Cannula 2.0 05/06/17 09:45 99 Nasal Cannula 2.0 05/06/17 09:30 36.7 57 14 101/60 99 Nasal Cannula 2 05/06/17 09:20 70 17 95/60 96 Nasal Cannula 2 05/06/17 09:10 67 15 95/54 97 Nasal Cannula 2 05/06/17 09:00 76 16 99/56 96 Nasal Cannula 2 05/06/17 08:54 36.8 84 16 105/52 95 Nasal Cannula 2 05/06/17 05:50 36.7 75 18 128/77 95 Room Air Additional Notes: X-ray - from Recovery room shows well-positioned TKR. No problems. Assessment Post-op Right TKR. Doing well. Pain controlled. N/V intact. Plan 1) PT/OT - right TKR protocol 2) IV antibiotics X 24 hours. 3) Pain control - doing well on current regimine 4) DVT prophylaxis - TEDs + SCDs + ECASA 5) Disposition - plan to send home with Home Health once recovered.
[2017-05-06] MEDS: ACETAMINOPHEN 500 MG TAB PO SCH ×2 (13:50→21:27)
[2017-05-06] MEDS: CEFAZOLIN IV 1,000 MG in DEXTROSE 5% 50ML 50 ML IV SCH (15:41)
[2017-05-06] MEDS: CHECK SCOPOLAMINE PATCH PLACEMENT SCH (15:41)
[2017-05-06] MEDS: SENNA 8.6 MG TAB PO SCH (20:27)
[2017-05-06] MEDS: CHOLECALCIFEROL 1000 INTER.UNIT TAB PO SCH (20:28)
[2017-05-07] MEDS: CEFAZOLIN IV 1,000 MG in DEXTROSE 5% 50ML 50 ML IV SCH (00:09)
[2017-05-07] MEDS: CHECK SCOPOLAMINE PATCH PLACEMENT SCH ×3 (00:10→16:00)
[2017-05-07] MEDS: KETOROLAC TROMETHAMINE 30 MG/ML VIAL IV. SCH ×4 (00:10→18:00)
[2017-05-07 04:26] VITALS: BP 95/60; PULSE 64; TEMP 36.3; O2SAT 95
[2017-05-07] MEDS: ACETAMINOPHEN 500 MG TAB PO SCH ×3 (05:22→22:03)
[2017-05-07] MEDS: D5W AND 1/2NSS + 20MEQ KCL 1,000 ML IV SCH (05:22)
[2017-05-07 06:49] LABS: HEMATOCRIT 36.3 % (37-47); MEAN CELL VOLUME 87.1 fL (80-100); MEAN CORPUSCULAR HEMOGLOBIN 27.6 pg (25-34); MEAN CORPUSCULAR HGB CONC 31.7 g/dl (32-36); MEAN PLATELET VOLUME 8.9 fL (7.4-10.4); PLATELET COUNT 211 K/uL (130-400); RED BLOOD COUNT 4.17 M/uL (4.2-5.4); WHITE BLOOD COUNT 6.98 K/uL (4.8-10.8)
[2017-05-07 07:22] LABS: BUN/CREATININE RATIO 15.6 (10-20); CALCIUM 8.8 mg/dl (8.5-10.1); CREATININE 0.89 mg/dl (0.60-1.20); POTASSIUM 4.2 mmol/L (3.5-5.1)
--- NOTE | 2017-05-07 08:00 | Anesthesiology Progress Note ---
Anesthesia Post Op Note Date & Time May 07, 2017 at 08:00 Vital Signs Pain Intensity: 0.0 Vital Signs Past 12 Hours Date Time Temp Pulse Resp B/P (MAP) Pulse Ox O2 Delivery O2 Flow Rate FiO2 05/07/17 04:26 36.3 64 14 95/60 (72) 95 Room Air 05/07/17 00:05 Room Air 05/06/17 23:26 36.7 58 15 95/60 (72) 99 Room Air Notes Mental Status: alert / awake / arousable, participated in evaluation Pt Amnestic to Procedure: Yes Nausea / Vomiting: adequately controlled Pain: adequately controlled Airway Patency, RR, SpO2: stable & adequate BP & HR: stable & adequate Hydration State: stable & adequate Anesthetic Complications: no major complications apparent
[2017-05-07 08:11] VITALS: BP 108/64; PULSE 54; TEMP 36.7; O2SAT 94
[2017-05-07 08:14] VITALS: O2SAT 94
--- NOTE | 2017-05-07 08:24 | Progress Note ---
Orthopedic SOAP Note Subjective Date of Service: May 07, 2017. Post OP Day: POD #1 _ Right TKR Reports: feeling well, pain controlled w PO medications Objective calves soft nontender, N/V intact, capillary refill less than 2 sec., dressing C /D/I, A&O x3, toes mobile, CMS intact Date Time Temp Pulse Resp B/P (MAP) Pulse Ox O2 Delivery O2 Flow Rate FiO2 05/07/17 08:14 94 05/07/17 08:11 36.7 54 12 108/64 (79) 94 Room Air 05/07/17 04:26 36.3 64 14 95/60 (72) 95 Room Air 05/07/17 00:05 Room Air 05/06/17 23:26 36.7 58 15 95/60 (72) 99 Room Air 05/06/17 17:00 36.6 65 17 97/61 (73) 100 Room Air 05/06/17 15:40 Nasal Cannula 2.0 05/06/17 12:27 36.3 55 18 101/61 (74) 99 Nasal Cannula 2.0 05/06/17 11:38 36.3 45 17 93/59 (70) 100 Nasal Cannula 2.0 05/06/17 10:47 36.3 47 18 91/58 (69) 100 Nasal Cannula 2.0 05/06/17 10:09 36.4 54 17 139/60 (86) 96 Nasal Cannula 2.0 05/06/17 09:45 36.4 64 14 98/60 (73) 99 Nasal Cannula 2.0 05/06/17 09:45 99 Nasal Cannula 2.0 05/06/17 09:45 99 Nasal Cannula 2.0 05/06/17 09:30 36.7 57 14 101/60 99 Nasal Cannula 2 05/06/17 09:20 70 17 95/60 96 Nasal Cannula 2 05/06/17 09:10 67 15 95/54 97 Nasal Cannula 2 05/06/17 09:00 76 16 99/56 96 Nasal Cannula 2 05/06/17 08:54 36.8 84 16 105/52 95 Nasal Cannula 2 Laboratory Results 24 Hours: Test 05/07/17 06:20 Hematocrit 36.3 % Hemoglobin 11.5 g/dL Assessment Post-op Right TKR. Doing well. Pain controlled. N/V intact. Plan 1) PT/OT - right TKR protocol 2) IV antibiotics X 24 hours. 3) Pain control - doing well on current regimine 4) DVT prophylaxis - TEDs + SCDs + ECASA 5) Disposition - plan to send home with outpatient therapy at [facility].
[2017-05-07] MEDS ORDERED: ACET-24 PO (08:26)
[2017-05-07] MEDS ORDERED: ASPEC325 PO (08:26)
[2017-05-07] MEDS ORDERED: DLD2 PO (08:26)
--- NOTE | 2017-05-07 08:29 | Discharge Instructions ---
Discharge Instructions Date of Service May 07, 2017. Admission Reason for Admission: Right Knee Degenerative Joint Disease Discharge Discharge Diagnosis / Problem: Right Knee Replacement Discharge Goals Goal(s): Decrease discomfort, Improve function, Increase independence, Improve disease control, Therapeutic intervention Activity Recommendations Activity Limitations: per Instructions/Follow-up section Weightbearing Status: Right weightbearing . Instructions / Follow-Up Instructions / Follow-Up ACTIVITY RECOMMENDATIONS: Physical Therapy: * You will go to physical therapy three times each week for four to six weeks after your surgery in order to regain your knee range of motion and to retrain your knee to work properly. * It is just as important to make sure you are getting your knee perfectly straight as it is to regain your knee bend. * Taking a pain pill an hour before therapy can help you have a more productive and comfortable therapy session. Home Exercise: * You were shown a series of exercises (heel props, heel slides, etc.) in the hospital. Do these exercises three to four times each day including the exercises you were shown in physical therapy. Walking: * Get up and walk several times each day. For the first four weeks, try not to stand or walk for more than one hour at a time. If you do stand or walk for more than one hour, you will not hurt anything, but your knee and leg will likely swell. * As you feel comfortable, you may change from the walker or crutches to a cane and then to independent walking. MEDICATIONS: New Medicine: * You will likely be taking one or more of these medications: 1. Dilaudid - A quick and shorter-acting pain medication. Take one to two tablets every four to six hours to lessen your pain. 2. Aspirin - Thins your blood to lessen the chance of forming a blood clot. * The most common side effects of pain medicine and iron are nausea and constipation. If nausea or constipation is too much of a problem or if you have any questions about your new medicines or doses, call [facility] at [phone]. We will try to help you manage these issues. VERY IMPORTANT TO READ AND REVIEW" Pain: * The immediate post-operative period after knee replacement surgery is often quite painful. * You are given a prescription for pain medicine. You should take it, as directed, when you need it, especially before physical therapy and before going to bed. Pain that interferes with sleep is very common and can last several months. * You will likely need pain medicine for the first four to six weeks. It will not stop all of the pain. The pain will lessen and as you feel better, you may change to milder pain medicine such as Tylenol. * The most common side effects of pain medicine are nausea and constipation, so don't take more than you need. SPECIAL CARE INSTRUCTIONS: TEDs/Elastic Stockings: * The white elastic stockings help limit swelling and prevent blood clots from forming in your legs. The more you wear them, the more they work. * Wear them for six weeks after knee replacement surgery and four weeks after partial knee replacement. Prevention of Infection: * Take antibiotics one hour before any dental cleaning, dental work, urological procedure, gastrointestinal procedure or any invasive surgery in order to prevent your new joint from getting infected. * You may get the antibiotics from the doctor performing the procedure or you may call our office at before and we will call in a prescription to the pharmacy of your choice. Things to Watch For: * Drainage from the incision site that occurs more than one week after your surgery. * Severely increased knee/leg pain or swelling. * Increased redness at the incision site. * Fever above 102 degrees Fahrenheit. * Unusual chest pain or shortness of breath. * Unusual pain or burning with urination. Call [facility] at with any of the above problems or if you have any questions about your medicines or recovery. FOLLOW UP VISIT: Make an appointment to see your doctor for approximately two weeks after surgery for a progress check and staple removal by calling the office at . Current Hospital Diet Patient's current hospital diet: Regular Diet Discharge Diet Recommended Diet: Regular Diet Procedures Procedures Performed: Right Total Knee Arthroplasty Pending Studies Studies pending at discharge: no Medical Emergencies . Who to Call and When: Medical Emergencies: If at any time you feel your situation is an emergency, please call [phone] immediately. . Non-Emergent Contact Non-Emergency issues call your: Surgeon . "Provider Documentation" section prepared by Rober Orozco. . VTE Core Measure Inpt VTE Proph given/why not?: Other Anticoagulation, T.E.D. Stockings, SCD's
[2017-05-07] MEDS: DOCUSATE SODIUM 100 MG CAP PO SCH ×2 (09:15→20:45)
[2017-05-07] MEDS: PANTOprazole SOD 40 MG TAB PO SCH (09:15)
[2017-05-07] MEDS: FERROUS GLUCONATE 324 MG TAB PO SCH ×3 (09:15→17:04)
[2017-05-07] MEDS: MULTIVITAMIN TAB PO SCH (09:16)
[2017-05-07] MEDS: ASPIRIN 325 MG ECTAB PO SCH ×2 (09:17→20:45)
[2017-05-07] MEDS: TRAMADOL HCL 50 MG TAB PO PRN ×3 (09:23→17:03)
[2017-05-07 11:29] VITALS: BP 122/60; PULSE 65; TEMP 39.7; O2SAT 97
[2017-05-07 15:24] VITALS: BP 118/71; PULSE 82; TEMP 36.8; O2SAT 93
[2017-05-07] MEDS: CHOLECALCIFEROL 1000 INTER.UNIT TAB PO SCH (20:45)
[2017-05-07] MEDS: SENNA 8.6 MG TAB PO SCH (20:46)
[2017-05-07 23:15] VITALS: BP 113/70; PULSE 77; TEMP 36.9; O2SAT 94
[2017-05-08] MEDS: CHECK SCOPOLAMINE PATCH PLACEMENT SCH
[2017-05-08] MEDS: KETOROLAC TROMETHAMINE 30 MG/ML VIAL IV. SCH ×2 (00:36→05:46)
[2017-05-08] MEDS: ACETAMINOPHEN 500 MG TAB PO SCH (05:46)
--- NOTE | 2017-05-08 07:32 | Progress Note ---
Orthopedic SOAP Note Subjective Date of Service: May 08, 2017. Post OP Day: POD #2 - Right TKR Reports: feeling well, pain controlled w PO medications Objective calves soft nontender, N/V intact, capillary refill less than 2 sec., dressing C /D/I, incision C/D/I, A&O x3, toes mobile, CMS intact Date Time Temp Pulse Resp B/P (MAP) Pulse Ox O2 Delivery O2 Flow Rate FiO2 05/08/17 00:00 Room Air 05/07/17 23:15 36.9 77 16 113/70 (84) 94 Room Air 05/07/17 15:30 Room Air 05/07/17 15:24 36.8 82 18 118/71 (87) 93 Room Air 05/07/17 11:29 39.7 65 20 122/60 (80) 97 Room Air 05/07/17 09:17 Room Air 05/07/17 08:14 94 05/07/17 08:11 36.7 54 12 108/64 (79) 94 Room Air Assessment Post-op Day #2 Right TKR. Doing well. Pain controlled. N/V intact. Plan 1) PT/OT - right TKR protocol 2) IV antibiotics X 24 hours. Completed. 3) Pain control - doing well on current regimine 4) DVT prophylaxis - TEDs + SCDs + ECASA 5) Disposition - plan to send home with outpatient therapy at [facility].
[2017-05-08 07:57] VITALS: BP 117/72; PULSE 66; TEMP 36.7; O2SAT 93
[2017-05-08 08:02] VITALS: O2SAT 93
[2017-05-08] MEDS: TRAMADOL HCL 50 MG TAB PO PRN (08:28)
[2017-05-08] MEDS: FERROUS GLUCONATE 324 MG TAB PO SCH (08:28)
[2017-05-08] MEDS: DOCUSATE SODIUM 100 MG CAP PO SCH (08:29)
[2017-05-08] MEDS: PANTOprazole SOD 40 MG TAB PO SCH (08:29)
[2017-05-08] MEDS: ASPIRIN 325 MG ECTAB PO SCH (08:29)
[2017-05-08] MEDS: MULTIVITAMIN TAB PO SCH (08:29)
[2017-05-08 09:24] VITALS: BP 117/72; PULSE 66; TEMP 36.7; O2SAT 93
--- NOTE | 2017-05-15 16:17 | DISCHARGE SUMMARY ---
ADMITTING PHYSICIAN AND SURGEON: Dr. Orozco. ADMITTING DIAGNOSIS: Right knee degenerative joint disease. SURGERY PERFORMED: Right total knee arthroplasty. SECONDARY DIAGNOSES: Noncontributory. CONSULTS: None obtained. HISTORY AND PHYSICAL EXAMINATION: Well documented in patient's chart. HOSPITAL COURSE: The patient was admitted on 05/06/2017 underwent total knee arthroplasty, tolerated the procedure well. There were no complications. She was transferred to the PACU postoperatively and later to the orthopedic floor for further care. She was given Ancef for antibiotic prophylaxis, ANTONIO stockings, SCDs and aspirin for DVT prophylaxis. Her hemoglobin, hematocrit and vital signs were monitored during her hospital stay and remained stable. She did not require blood transfusions. There were no complications. By postoperative day 2, she was tolerating a general diet, pain was controlled with oral pain medicine. She was participating in physical therapy and had no signs or symptoms of deep vein thrombosis. On postop day 2, she was discharged home. She was given new prescriptions for aspirin 325 mg b.i.d., Tylenol, hydromorphone and continue her home medications with the exception of her home dose of aspirin. Continue physical therapy, weightbearing as tolerated, ANTONIO stockings. Follow up in 10-12 days or sooner if there are problems or concerns.
== END 2017-05-08 11:40 | disposition home or self-care (01) | DRG 470 ==
LOC: C.ACU 05:20 → C.3E 06:40 → ENRESERV 09:22
PROVIDERS: ADMIT Orthopaedic Surgery Sports Medicine; ATTEND Orthopaedic Surgery Sports Medicine
PROC: 0SRC0J9 Replacement of Right Knee Joint with Synthetic Substitute, Cemented, Open Approach (ICD-10-PCS; principal; 2017-05-06 07:00)
DX: M17.11 Unilateral primary osteoarthritis, right knee (principal); Z96.652 Presence of left artificial knee joint; Z79.82 Long term (current) use of aspirin

== ENCOUNTER → 2018-06-02 | Outpatient (CLI) | payer BC ==
[~2018-06-02] MED LIST changes: +ACET-24 PO; +ASPEC325 PO; -ASPI81TA28 PO; +HYDR2TAB3 PO
== END | disposition home or self-care (01) ==
LOC: C.MAMM 08:09
PROVIDERS: ATTEND Family Medicine Adult Medicine
DX: Z78.0 Asymptomatic menopausal state (principal)

== ENCOUNTER 2020-03-22 17:32 | Observation (INO) ==
[2020-03-22] MEDS ORDERED: FAMOTIDINE 20MG IV PUSH 20 MG/5 ML SYR IV STA (18:26)
[2020-03-22] MEDS ORDERED: SODIUM CHLORIDE 0.9% 1000ML 1,000 ML IV ONE (18:26)
[2020-03-22] MEDS ORDERED: ACETAMINOPHEN 1,000 MG/100 ML VIAL IV STA (18:26)
[2020-03-22 18:35] LABS: Basophils # (auto) 0.02 K/uL (0-0.2); Basophils % (auto) 0.1 %; Eosinophils # (auto) 0.05 K/uL (0-0.5); Eosinophils % (auto) 0.3 %; Hematocrit (blood only) 42.9 % (37-47); Hemoglobin 14.8 g/dL (12.0-16.0); Immature Granulocytes # (auto) 0.03 K/uL (0.00-0.02); Immature Granulocytes % (auto) 0.2 %; Lymphocytes # (auto) 1.21 K/uL (1.2-3.4); Lymphocytes % (auto) 8.3 %; Mean Corpuscular Hemoglobin 30.3 pg (25-34); Mean Corpuscular Hgb Conc 34.5 g/dL (32-36); Mean Corpuscular Volume 87.9 fL (80-100); Mean Platelet Volume 9.6 fL (7.4-10.4); Monocytes # (auto) 0.62 K/uL (0.11-0.59); Monocytes % (auto) 4.2 %; Neutrophils # (auto) 12.73 K/uL (1.4-6.5); Neutrophils % (auto) 86.9 %; Platelet Count 279 K/uL (130-400); RDW Coefficient of Variation 13.1 % (11.5-14.5); RDW Standard Deviation 41.8 fL (36.4-46.3); Red Blood Count 4.88 M/uL (4.2-5.4); White Blood Count 14.66 K/uL (4.8-10.8)
[2020-03-22 18:49] LABS: Appearance Urine Clear (Clear); Blood Urine Negative (Negative); Color Urine Dark Yellow; Glucose Urine UA Negative (Negative); Ketones Urine 3+ (Negative); Leukocyte Esterase Urine Negative (Negative); Nitrite Urine Negative (Negative); Protein Urine Negative (Negative); Specific Gravity Urine 1.029 (1.000-1.030); Urobilinogen Urine Negative (Negative)
[2020-03-22 18:49] LABS: Alanine Aminotransferase 47 U/L (12-78); Aspartate Aminotransferase 22 U/L (15-37); BUN Creatinine Ratio 19.2 (10-20); Blood Urea Nitrogen 16 mg/dl (7-18); Calcium 9.1 mg/dl (8.5-10.1); Carbon Dioxide 28 mmol/L (21-32); Chloride 105 mmol/L (98-107); Est GFR (African American) 83.9; Est GFR (Non-African American) 72.4; Glucose 123 mg/dl (70-99); Lipase 89 U/L (73-393); Potassium 3.7 mmol/L (3.5-5.1); Sodium 139 mmol/L (136-145)
[2020-03-22 18:51] LABS: Albumin Globulin Ratio 1.1 (0.9-2); Alkaline Phosphatase 90 U/L (45-117); Bilirubin,Total 1.4 mg/dl (0.2-1); Globulin 3.8 gm/dl (2.5-4.0); Total Protein 7.8 gm/dl (6.4-8.2)
[2020-03-22 19:04] LABS: Bilirubin Urine Negative (Negative); Ictotest Urine Negative (Negative)
[2020-03-22] MEDS ORDERED: IOVERSOL 100ml IV PRN (19:12)
--- NOTE | 2020-03-22 19:28 | CT Scan Report ---
CT abd pelvis IV con only CT DOSE: 792.55 mGy.cm HISTORY: Nausea RLQ pain, nausea TECHNIQUE: Multiaxial CT images of the abdomen and pelvis were performed following the use of intrave nous contrast. A dose lowering technique was utilized adhering to the principles of ALARA. COMPARISON STUDY: None. FINDINGS: Lungs are clear. Liver spleen and pancreas appear unremarkable. Gallbladder is negative for distention. Kidneys negative for process. Upper abdominal bowel pattern is nonobstructive. The appendix is mildly distended at 7.5 mm. There is a trace amount of periappendiceal infiltrative c hange. There is no evidence for abscess collection or obstruction. The bladder is midline. There are several sigmoid diverticuli with no evidence for diverticulitis. IMPRESSION: 1. Findings of mild acute appendicitis. 2. Appendiceal diameter is 7.5 mm with a trace of periappendiceal infiltrative change. 3. No evidence for abscess collection or obstruction. ACT 112: Negative or not required by law. The above report was generated using voice recognition software. It may contain grammatical, syntax or spelling errors. Electronically signed by: Luis Duran M.D. 03/22/2020 7:26 PM
--- NOTE | 2020-03-22 20:08 | Emergency Department Note ---
Impression & Plan Acute appendicitis, Abdominal pain, right lower quadrant, Nausea & vomiting ED Provider Note NAME: ANNIKA GARCIA AGE: 64 SEX: F ARRIVES VIA: Walk-In INFORMANT: Patient, ED PROVIDER(S): Pedrito Rodriguez MD CHIEF COMPLAINT: Abdominal pain PLAN: Disposition: Admit MEDICAL DECISION MAKING: The patient is a pleasant 64-year-old woman who presents emergency department with nausea and right lower quadrant pain that began today at noon. She does report having a single episode of diarrhea yesterday but this has not continued. She still has her gallbladder and appendix. She denies fevers, cough, congestion, urinary symptoms. I will the patient is uncomfortable no acute distress, afebrile stable vital signs. On exam the patient has mild tenderness in the right lower quadrant over McBurney's point. There is no guarding or rebound. WBC 14.6, with neutrophil predominance.. H/H and platelets within normal limits. Chemistry without acidosis. Electrolytes and LFTs unremarkable. Lipase within normal limits. UA negative for infection. CT abdomen pelvis demonstrates findings consistent with early appendicitis with dilated appendix measuring 7.5 mm, with periappendiceal infiltrative change. Case was discussed with Ra Pollard general surgery KATHY with general surgery Dr. Swift, who evaluate the patient. She was ordered for cefoxitin. Triage Nursing notes reviewed and agree them. Prior medical records reviewed Vital Signs: reviewed and remarkable for no significant abnormalities Differential diagnosis: Appendicitis, ovarian cyst, ovarian torsion, ectopic , TOA, PID, infections, diverticulitis, UTI, obstruction, mesenteric ischemia, aortic pathology, inflammatory bowel disease, renal colic, PUD, pancreatitis, biliary pathology, hernia, volvulus, constipation, as well as other pathologies. ER treatment provided: See below. Diagnostics interpreted by me: ECG: None Cardiac Monitoring: None Laboratory studies: See below Imaging studies: CT abd pelvis IV con only CT DOSE: 792.55 mGy.cm HISTORY: Nausea RLQ pain, nausea TECHNIQUE: Multiaxial CT images of the abdomen and pelvis were performed following the use of intravenous contrast. A dose lowering technique was utilized adhering to the principles of ALARA. COMPARISON STUDY: None. FINDINGS: Lungs are clear. Liver spleen and pancreas appear unremarkable. Gallbladder is negative for distention. Kidneys negative for process. Upper abdominal bowel pattern is nonobstructive. The appendix is mildly distended at 7.5 mm. There is a trace amount of periappendiceal infiltrative change. There is no evidence for abscess collection or obstruction. The bladder is midline. There are several sigmoid diverticuli with no evidence for diverticulitis. IMPRESSION: 1. Findings of mild acute appendicitis. 2. Appendiceal diameter is 7.5 mm with a trace of periappendiceal infiltrative change. 3. No evidence for abscess collection or obstruction. Consultation(s): Ra Bond, general surgery PAC with Dr. Swift HPI: 64/F arrives for evaluation of. ROS: See above HPI for pertinent positives & negatives. A total of 10 systems reviewed and were otherwise negative. PAST MEDICAL HISTORY:See Below PAST SURGICAL HISTORY:See Below FAMILY HISTORY:See Below SOCIAL HISTORY:See Below HOME MEDICATIONS:See Below ALLERGIES:See Below VITALS:See Below PHYSICAL EXAMINATION: GENERAL: Awake, alert, uncomfortable-appearing, in no distress HENT: Normocephalic, atraumatic. Oropharynx with dry mucous membranes and otherwise unremarkable. EYES: Normal conjunctiva. Sclera non-icteric. NECK: Supple. No nuchal rigidity. FROM. No JVD. RESPIRATORY: Clear to auscultation. CARDIAC: Regular rate, normal rhythm. Extremities warm and well perfused. Pulses equal. ABDOMEN: Soft, non-distended. Mild to moderate right lower quadrant tenderness over McBurney's point. No rebound or guarding. No masses. RECTAL: Deferred. MUSCULOSKELETAL: Chest examination reveals no tenderness. The back is symmetrical on inspection without obvious abnormality. There is no CVA tenderness to palpation. No joint edema. LOWER EXTREMITIES: Calves are equal size bilaterally and non-tender. No edema. No discoloration. NEURO: Normal sensorium. No sensory or motor deficits noted. SKIN: No rash or jaundice noted. Pedrito Rodriguez MD Past Med/Surg History Medical History Cerebral microvascular disease (Acute) Hypercholesterolemia (Acute) Osteoarthritis Osteopenia (Acute) Prediabetes (Acute) Surgical History H/O dilation and curettage History of breast biopsy benign History of colonoscopy History of gynecologic surgery D&E x2 History of tonsillectomy and adenoidectomy History of total left knee replacement (TKR) History of total right knee replacement (TKR) History of wisdom tooth extraction Family History Father Diabetes Mother Diabetes Sister Skin cancer Other No family history of adverse response to anesthesia Denies family history of Ovarian cancer Breast cancer Colorectal cancer Social History (Updated 02/14/20 @ 13:20 by Renetta Duarte) Preferred Language: Finnish Communication Ability: Effective Oil Fire Specialist Required: No Beliefs That Will Affect Care: None marital status: Current Living Situation: Spouse and Family Current Living Situation Comment: lives with and father in law Other Information That Helps Us Care for You: No Feels Safe at Home: Yes Safety Concerns: Feels Safe At This Time Smoking Status: Never smoker Second Hand Exposure: Yes (parents smoked) ; Hx Alcohol Use: No Hx Substance Use: No Allergies Allergies Allergy/AdvReac Type Severity Reaction Status Date / Time chlorhexidine Allergy Mild RASH Verified 03/22/20 19:41 nickel Allergy Mild FROM Verified 03/22/20 19:41 JEWELRY(CAN ONLY WEAR 14k) HAD RED AND BLISTERY AREAS codeine AdvReac Mild NAUSEA AND Verified 03/22/20 19:41 VOMITTING Home Meds Home Medications Medication Instructions Recorded Confirmed multivitamin 0 tab PO DAILY 03/22/20 03/22/20 Results & Data (ED) Vital Signs Vital Signs - 24 hr 03/22/20 17:37 03/22/20 18:43 03/22/20 18:44 Temperature 36.7 C Temperature Source Oral Pulse Rate 101 H 90 Pulse Rate [Right] 83 Pulse Rate from SpO2 Sensor Pulse Rhythm Regular Pulse Strength Normal Respiratory Rate 18 19 20 Respiratory Effort / Characteristics Non-Labored Non-Labored Respiratory Depth Normal Normal Respiratory Pattern Regular Blood Pressure 130/77 137/79 Blood Pressure [Right Arm] 137/79 Blood Pressure Mean 94 98 Blood Pressure Mean [Right Arm] 98 Blood Pressure Position Sitting Blood Pressure Position [Right Arm] Lying Pulse Oximetry 96 96 Oxygen Delivery Method Room Air Room Air Room Air Sepsis Recent Fever Within 48 Hours No Sepsis Action Taken by Nursing No Action Required 03/22/20 18:46 03/22/20 18:50 03/22/20 19:00 Temperature Temperature Source Pulse Rate 77 81 78 Pulse Rate [Right] Pulse Rate from SpO2 Sensor Pulse Rhythm Pulse Strength Respiratory Rate 17 16 16 Respiratory Effort / Characteristics Respiratory Depth Respiratory Pattern Blood Pressure Blood Pressure [Right Arm] Blood Pressure Mean Blood Pressure Mean [Right Arm] Blood Pressure Position Blood Pressure Position [Right Arm] Pulse Oximetry Oxygen Delivery Method Room Air Room Air Room Air Sepsis Recent Fever Within 48 Hours Sepsis Action Taken by Nursing 03/22/20 20:11 03/22/20 20:12 03/22/20 20:20 Temperature Temperature Source Pulse Rate 75 84 92 H Pulse Rate [Right] 85 Pulse Rate from SpO2 Sensor 92 H Pulse Rhythm Pulse Strength Respiratory Rate 15 21 16 Respiratory Effort / Characteristics Respiratory Depth Respiratory Pattern Blood Pressure 140/84 Blood Pressure [Right Arm] 140/84 Blood Pressure Mean 112 Blood Pressure Mean [Right Arm] 102 Blood Pressure Position Blood Pressure Position [Right Arm] Pulse Oximetry 97 Oxygen Delivery Method Room Air Room Air Room Air Sepsis Recent Fever Within 48 Hours Sepsis Action Taken by Nursing 03/22/20 20:30 03/22/20 20:40 03/22/20 20:56 Temperature Temperature Source Pulse Rate 92 H 88 Pulse Rate [Right] Pulse Rate from SpO2 Sensor 92 H Pulse Rhythm Pulse Strength Respiratory Rate 21 20 Respiratory Effort / Characteristics Respiratory Depth Respiratory Pattern Blood Pressure 146/90 H Blood Pressure [Right Arm] Blood Pressure Mean 97 Blood Pressure Mean [Right Arm] Blood Pressure Position Blood Pressure Position [Right Arm] Pulse Oximetry 95 Oxygen Delivery Method Room Air Room Air Room Air Sepsis Recent Fever Within 48 Hours Sepsis Action Taken by Nursing Laboratory Data Result diagrams: 03/22/20 18:12 03/22/20 18:12 Lab Results 03/22/20 03/22/20 03/22/20 Range/Units 18:12 18:12 18:22 WBC 14.66 H (4.8-10.8) K/uL RBC 4.88 (4.2-5.4) M/uL Hgb 14.8 (12.0-16.0) g/dL Hct 42.9 (37-47) % MCV 87.9 (80-100) fL MCH 30.3 (25-34) pg MCHC 34.5 (32-36) g/dL RDW Std Deviation 41.8 (36.4-46.3) fL RDW Coeff of Katrina 13.1 (11.5-14.5) % Plt Count 279 (130-400) K/uL MPV 9.6 (7.4-10.4) fL Immature Gran % (Auto) 0.2 % Neut % (Auto) 86.9 % Lymph % (Auto) 8.3 % [place] % (Auto) 4.2 % Eos % (Auto) 0.3 % Baso % (Auto) 0.1 % Immature Gran # (Auto) 0.03 H (0.00-0.02) K/uL Neut # (Auto) 12.73 H (1.4-6.5) K/uL Lymph # (Auto) 1.21 (1.2-3.4) K/uL [place] # (Auto) 0.62 H (0.11-0.59) K/uL Eos # (Auto) 0.05 (0-0.5) K/uL Baso # (Auto) 0.02 (0-0.2) K/uL Sodium 139 (136-145) mmol/L Potassium 3.7 (3.5-5.1) mmol/L Chloride 105 (98-107) mmol/L Carbon Dioxide 28 (21-32) mmol/L Anion Gap 6.0 (3-11) BUN 16 (7-18) mg/dl Creatinine 0.84 (0.6-1.2) mg/dl Est Cr Clr Drug Dosing Not Reportable Est GFR ( Amer) 83.9 Est GFR (Non-Af Amer) 72.4 BUN/Creatinine Ratio 19.2 (10-20) Glucose 123 H (70-99) mg/dl Calcium 9.1 (8.5-10.1) mg/dl Total Bilirubin 1.4 H (0.2-1) mg/dl AST 22 (15-37) U/L ALT 47 (12-78) U/L Alkaline Phosphatase 90 (45-117) U/L Total Protein 7.8 (6.4-8.2) gm/dl Albumin 4.0 (3.4-5.0) gm/dl Globulin 3.8 (2.5-4.0) gm/dl Albumin/Globulin Ratio 1.1 (0.9-2) Lipase 89 (73-393) U/L Urine Color Dark Yellow Urine Appearance Clear (Clear) Urine pH 5.0 (4.5-7.5) Ur Specific [place] 1.029 (1.000-1.030) Urine Protein Negative (Negative) Urine Glucose (UA) Negative (Negative) Urine Ketones 3+ H (Negative) Urine Blood Negative (Negative) Urine Nitrite Negative (Negative) Urine Bilirubin Negative (Negative) Urine Urobilinogen Negative (Negative) Ur Leukocyte Esterase Negative (Negative) Administered Medications Cefoxitin Sodium 1,000 mg/ (Dextrose) 60 mls @ 100 mls/hr IV Q6H TIGRE Stop: 04/02/20 03:59 Last Admin: 03/23/20 03:27 Dose: 100 mls/hr Documented by: [id number] Sodium Chloride (Nss 1000ml) 1,000 mls @ 80 mls/hr IV .[id number] TIGRE Stop: 04/22/20 00:15 Last Infusion: 03/23/20 03:28 Dose: 0 mls/hr Documented by: [id number] Admin: 03/23/20 00:45 Dose: 80 mls/hr Documented by: [id number] Promethazine HCl 25 mg/ Sodium (Chloride) 51 mls @ 204 mls/hr IV Q6H PRN PRN Reason: Nausea And Vomiting Stop: 04/22/20 00:15 Last Infusion: 03/23/20 01:46 Dose: 0 mls/hr Documented by: [id number] Admin: 03/23/20 01:31 Dose: 204 mls/hr Documented by: [id number] Discontinued Medications Bupivacaine HCl (Marcaine 0.5% Mpf) Confirm Administered Dose 30 ml .ROUTE .STK- MED ONE Stop: 03/22/20 20:27 Last Admin: 03/22/20 22:50 Dose: 10 ml Documented by: [id number] Sodium Chloride (Nss 1000ml) 1,000 mls @ 999 mls/hr IV .Q1H1M ONE Stop: 03/22/20 19:26 Last Infusion: 03/22/20 20:02 Dose: 0 mls/hr Documented by: [id number] Admin: 03/22/20 18:37 Dose: 999 mls/hr Documented by: [id number] Acetaminophen (Ofirmev) 1,000 mg in 100 mls @ 400 mls/hr IV NOW STA Stop: 03/22/20 18:40 Last Infusion: 03/22/20 19:07 Dose: 0 mls/hr Documented by: [id number] Admin: 03/22/20 18:37 Dose: 400 mls/hr Documented by: [id number] Famotidine (Pepcid 20mg Iv Push) 20 mg in 5 mls @ 2.5 mls/min IV NOW STA Stop: 03/22/20 18:27 Last Admin: 03/22/20 18:37 Dose: 2.5 mls/min Documented by: [id number] Cefoxitin Sodium (Mefoxin) 2,000 mg in 60 mls @ 100 mls/hr IV NOW STA Stop: 03/22/20 20:47 Last Infusion: 03/23/20 02:00 Dose: 0 mls/hr Documented by: [id number] Admin: 03/22/20 21:50 Dose: 100 mls/hr Documented by: [id number] Acetaminophen (Ofirmev) 1,000 mg in 100 mls @ 400 mls/hr IV NOW ONE; Protocol Stop: 03/22/20 23:06 Last Infusion: 03/23/20 01:21 Dose: 0 mls/hr Documented by: [id number] Admin: 03/23/20 01:06 Dose: 400 mls/hr Documented by: [id number] Ioversol (Optiray 320 100ml) 93 ml IV ONCE PRN PRN Reason: Interaction Checking Stop: 03/26/20 19:11 Last Admin: 03/22/20 19:13 Dose: 93 ml Documented by: [id number] Ondansetron HCl (Zofran) Confirm Administered Dose 4 mg .ROUTE .STK-MED ONE Stop: 03/23/20 00:36 Last Admin: 03/23/20 00:36 Dose: 4 mg Documented by: [id number] Discharge Plan Visit Data *Final* Discharge Date/Time: 03/22/20 20:56 Chief Complaint: Abdominal Pain Stated Complaint: ABD PAIN, FLANK PAIN ED Provider: Pedrito Rodriguez Discharge Problem: Acute appendicitis, Abdominal pain, right lower quadrant, Nausea & vomiting Patient Disposition: Still a Patient Discharge Instructions Interventions: ED Discharge Assessment Last Done: 03/22/20 20:56 Discharge Problem: Acute appendicitis Qualifiers: Acute appendicitis type: unspecified acute appendicitis type Qualified Code(s): K35.80 - Unspecified acute appendicitis
[2020-03-22] MEDS ORDERED: cefOXitin 2,000 MG/60 ML BAG IV STA (20:12)
[2020-03-22] MEDS ORDERED: BUPIVACAINE 0.5 % 5 MG/1 ML MPF 30ML VIAL ONE (20:26)
--- NOTE | 2020-03-22 20:40 | History & Physical Report ---
Date of Service March 22, 2020 Assessment & Plan (1) Appendicitis: Patient with acute appendicitis For laparoscopic appendectomy possible open appendectomy History of Present Illness Primary Care Provider: Ada Pulido MD 64-year-old female with acute right lower quadrant pain beginning today and some nausea Blood cell count is 14.6 CT scan is consistent with early appendicitis with no abscess or significant fluid Allergies Allergy/AdvReac Type Severity Reaction Status Date / Time chlorhexidine Allergy Mild RASH Verified 03/22/20 19:41 nickel Allergy Mild FROM Verified 03/22/20 19:41 JEWELRY(CAN ONLY WEAR 14k) HAD RED AND BLISTERY AREAS codeine AdvReac Mild NAUSEA AND Verified 03/22/20 19:41 VOMITTING Home Medications Home Medications Medication Instructions Recorded Confirmed Type multivitamin 0 tab PO DAILY 03/22/20 03/22/20 History Past Med/Surg History Medical History (Updated 03/22/20 @ 20:40 by Idris Swift MD, FACS) Cerebral microvascular disease (Acute) Hypercholesterolemia (Acute) Osteoarthritis Osteopenia (Acute) Prediabetes (Acute) Surgical History (Updated 02/14/20 @ 13:19 by Renetta Duarte) H/O dilation and curettage History of breast biopsy benign History of colonoscopy History of gynecologic surgery D&E x2 History of tonsillectomy and adenoidectomy History of total left knee replacement (TKR) History of total right knee replacement (TKR) History of wisdom tooth extraction Family History (Updated 02/14/20 @ 13:19 by Renetta Duarte) Father Diabetes Mother Diabetes Sister Skin cancer Other No family history of adverse response to anesthesia Denies family history of Ovarian cancer Breast cancer Colorectal cancer Social History (Updated 02/14/20 @ 13:20 by eRnetta Duarte) Preferred Language: Swiss Communication Ability: Effective Liability Claims Adjuster Required: No Beliefs That Will Affect Care: None marital status: Current Living Situation: Spouse and Family Current Living Situation Comment: lives with and father in law Feels Safe at Home: Yes Smoking Status: Never smoker Second Hand Exposure: Yes (parents smoked) ; Hx Alcohol Use: No Hx Substance Use: No Review of Systems All systems reviewed & are unremarkable except as noted in HPI & below Physical Exam Constitutional: well developed and well nourished; no acute distress Eyes: + anicteric sclerae Respiratory: normal respiratory effort; no respiratory distress Cardiovascular: Rate/Rhythm: regular rate Gastrointestinal (Abdomen): Inspection/Auscultation: abdomen not distended Skin: no rashes, warm and dry Neurologic: awake Psychiatric: Orientation: alert Results & Data Vital Signs (Past 12 Hours) Vital Signs Temp Pulse Pulse Resp BP BP Pulse Ox 03/22/20 20:12 85 17 140/84 03/22/20 18:44 83 20 137/79 96 03/22/20 17:37 36.7 C 101 H 18 130/77 96 I did review her CAT scan
[2020-03-22] MEDS ORDERED: ROCURONIUM BROMIDE 10 MG/ML 5 ML VIAL ONE ×3 (20:45→22:46)
[2020-03-22] MEDS ORDERED: PROPOFOL IV EMULSION 10 MG/ML 20 ML VIAL IV ONE (20:45)
[2020-03-22] MEDS ORDERED: LIDOCAINE HCL 2% 2 ML VIAL/AMP(20MG/ML) INFIL ONE ×2 (20:45→22:46)
[2020-03-22] MEDS ORDERED: DEXAMETHASONE SOD INJ 4 MG/ML VIAL ONE (20:46)
[2020-03-22] MEDS ORDERED: ONDANSETRON INJ 2 MG/ML 2 ML VIAL ONE (20:46)
[2020-03-22] MEDS ORDERED: fentaNYL citrate 100 MCG/2 ML VIAL ONE ×2 (20:47→22:22)
[2020-03-22] MEDS ORDERED: MIDAZOLAM HCL 1 MG/ML 2ML VIAL ONE (20:47)
--- NOTE | 2020-03-22 21:04 | Anesthesiology Consultation ---
Date of Service March 22, 2020 Assessment & Plan (1) Encounter for pre-operative examination: Chart Review Chart Review: Acceptable Risk for Surgery and Patient NOT seen in Pre Admission Testing Consults Requested none ASA ASA2 Proposed Anesthesia Anesthesia Type: General Risk / Benefits Reviewed With: PT / POA / Parent / Guardian, Accepts Plan and Informed Consent Obtained History Surgery Operation Date: 03/22/20 21:00 Proposed Procedures p Laparoscopic Appendectomy - Idris Swift MD, FACS Height/Weight Height: 5 ft 3 in Weight: 92.986 kg Allergies Allergy/AdvReac Type Severity Reaction Status Date / Time chlorhexidine Allergy Mild RASH Verified 03/22/20 19:41 nickel Allergy Mild FROM Verified 03/22/20 19:41 JEWELRY(CAN ONLY WEAR 14k) HAD RED AND BLISTERY AREAS codeine AdvReac Mild NAUSEA AND Verified 03/22/20 19:41 VOMITTING Medications Home Medications Medication Instructions Recorded Confirmed Last Taken multivitamin 0 tab PO DAILY 03/22/20 03/22/20 Unknown Active Medications Generic Name Dose Route Start Last Admin Trade Name Freq PRN Reason Stop Dose Admin Ioversol 93 ml 03/22/20 19:12 03/22/20 19:13 Optiray 320 100ml IV 03/26/20 19:11 93 ml ONCE PRN Administration Interaction Checking NPO Date Last Intake of Fluids: 03/22/20 Time Last Intake of Fluids: 16:00 Date Last Intake of Solids: 03/22/20 Time Last Intake of Solids: 08:00 Past Medical History Medical History Cerebral microvascular disease (Acute) Hypercholesterolemia (Acute) Osteoarthritis Osteopenia (Acute) Prediabetes (Acute) Exercise / Class Metabolic Activity II 4-5 Yardwork/Stairs/Walk up hill Negative for chest pain or shortness of breath. Past Family History Family History Father Diabetes Mother Diabetes Sister Skin cancer Other No family history of adverse response to anesthesia Denies family history of Ovarian cancer Breast cancer Colorectal cancer Past Surgical History Surgical History H/O dilation and curettage History of breast biopsy benign History of colonoscopy History of gynecologic surgery D&E x2 History of tonsillectomy and adenoidectomy History of total left knee replacement (TKR) History of total right knee replacement (TKR) History of wisdom tooth extraction Past Anesthesia History No Hx of Anesthesia Complications History of PONV No Hx of PONV and Hx of Motion Sickness (Remote) Social History Smoking Status: Never smoker Hx Alcohol Use: No Hx Substance Use: No substance use type: does not use Review of Systems Patient denies active symptoms of GERD. Negative for chest pain or shortness of breath. Denies vomiting - positive for nausea Physical Exam Vital Signs Last Vital Signs Temp 36.7 C 03/22/20 17:37 Pulse 88 03/22/20 20:40 Resp 20 03/22/20 20:40 BP 146/90 H 03/22/20 20:30 Pulse Ox 95 03/22/20 20:30 Constitutional + obese ENMT Mouth: no TMJ abnormality and oral opening not small Thyromental Distance: > or= 3.5 Finger Breadths Mallampati Class: I Neck normal visual inspection; neck extension not limited Respiratory normal respiratory effort Auscultation: lungs clear to auscultation bilaterally Cardiovascular Rate/Rhythm: regular rate and regular rhythm Heart Sounds: no murmur Neurologic moves all extremities Motor/Sensory: no sensory deficit Psychiatric Orientation: alert and oriented x 3 Testing Laboratory Results 03/22/20 18:12 03/22/20 18:12 Urine Color Dark Yellow 03/22/20 18:22 Urine Appearance Clear (Clear) 03/22/20 18:22 Urine pH 5.0 (4.5-7.5) 03/22/20 18:22 Ur Specific [place] 1.029 (1.000-1.030) 03/22/20 18:22 Urine Protein Negative (Negative) 03/22/20 18:22 Urine Glucose (UA) Negative (Negative) 03/22/20 18:22 Urine Ketones 3+ (Negative) H 03/22/20 18:22 Urine Nitrite Negative (Negative) 03/22/20 18:22 Ur Leukocyte Esterase Negative (Negative) 03/22/20 18:22 Electrocardiogram Date: 03/22/20 Findings: + NSR @ (83) low voltage QRS
[2020-03-22] MEDS ORDERED: ATROPINE SULFATE 0.1 MG/ML 10ML SYR IV PRN (21:14)
[2020-03-22] MEDS ORDERED: ONDANSETRON INJ 2 MG/ML 2 ML VIAL IV PRN (21:14)
[2020-03-22] MEDS ORDERED: HYDROmorphone INJ 1 MG/ML SYRINGE IV PRN (21:14)
[2020-03-22] MEDS ORDERED: PROMETHAZINE HCL 12.5 MG in SODIUM CHLORIDE 0.9% 50 ML IV PRN (21:14)
[2020-03-22] MEDS ORDERED: ePHEDrine sulfate 50 MG/ML AMP IV PRN (21:14)
[2020-03-22] MEDS ORDERED: fentaNYL citrate 100 MCG/2 ML VIAL IV PRN (21:14)
[2020-03-22] MEDS ORDERED: NEOSTIGMINE METHYLSULFATE 5 MG/5 ML SYR ONE (22:21)
[2020-03-22] MEDS ORDERED: GLYCOPYRROLATE 0.2 MG/ML VIAL ONE (22:21)
[2020-03-22] MEDS ORDERED: ACETAMINOPHEN 1,000 MG/100 ML VIAL IV ONE (22:52)
--- NOTE | 2020-03-22 22:52 | Post Operative Brief Note ---
PG Immediate Post Op with CF Date of Surgery March 22, 2020 Pre & Post Diagnosis Operation Date: 03/22/20 21:00 Pre-Op Diagnosis: Acute Appendicitis Post-Op Diagnosis: Acute Appendicitis I identified the patient and participated in the time-out.: Yes Procedure Operation Date: 03/22/20 21:00 Actual Procedures p Laparoscopic Appendectomy(Not Applicable) - Idris Swift MD, FACS Surgeon Idris Swift MD, FACS Tire Fixer Marycruz Bond Estimated Blood Loss 20 Findings Consistent with Post-Op Diagnosis Specimens Specimen Description: A. Appendix
--- NOTE | 2020-03-22 23:28 | Operative Report (OR) ---
DATE OF OPERATION: 03/22/2020 NAME OF OPERATION: Laparoscopic appendectomy. PREOPERATIVE DIAGNOSIS: Acute appendicitis. POSTOPERATIVE DIAGNOSIS: Acute appendicitis. STAFF SURGEON: Idris Swift MD. MUCK BOSS: Dameon Bond PA-C. ANESTHESIA: General. DESCRIPTION OF PROCEDURE: The patient was brought into the operating room and placed on the operating table in supine position. Her abdomen was prepped and draped in usual fashion. A 0.5% plain Marcaine was used to anesthetize the skin and subcutaneous tissue. Skin was anesthetized above the umbilicus, carrying dissection down to the fascia, placing a Veress needle producing pneumoperitoneum. A 5 mm port was placed at this level. Under visualization, a second 5 mm port was placed suprapubically and then a 12 mm port placed in the left lower quadrant. The cecum and ileum were reflected. The appendix was identified, it was inflamed. The base of the appendix was transected using an Endo-DEACON stapler with a small amount of bleeding from the area of the mesentery. A second load of Endo-DEACON was used to transect the mesentery. The bleeding appeared to cease. 10 mm clips were applied to the area of mesentery. She did have a small amount of hematoma which was irrigated and aspirated. The appendix was placed in an Endobag and removed through the 12 mm site. We did take a short period to assess the area and be sure it was hemostatic, it appeared to be stable. At this point, all ports were removed. The site at the 12 mm area was closed closing the fascia using 0 Vicryl suture. Skin reapproximated using 4-0 Monocryl, subcuticular with Dermabond and Steri-Strips in the left lower quadrant. The patient was transferred to recovery room in stable condition after appropriate recovery. I attest to the content of the Intraoperative Record and any orders documented therein. Any exceptions are noted below. RADHA
--- NOTE | 2020-03-22 23:37 | Anesthesiology Progress Note ---
Date of Service March 22, 2020 Anesthesia Post Procedure Vital Signs Vital Signs: Temp Pulse Pulse Resp BP BP Pulse Ox 03/22/20 20:40 88 20 03/22/20 20:30 92 H 21 146/90 H 95 03/22/20 20:20 92 H 16 97 03/22/20 20:12 84 85 21 140/84 03/22/20 20:11 75 15 140/84 03/22/20 19:00 78 16 03/22/20 18:50 81 16 03/22/20 18:46 77 17 03/22/20 18:44 83 20 137/79 96 03/22/20 18:43 90 19 137/79 03/22/20 17:37 36.7 C 101 H 18 130/77 96 Transfer of Care Handoff Completed per policy Notes Mental Status: alert / awake / arousable and participated in evaluation Patient Amnestic to Procedure: Yes Nausea / Vomiting: adequately controlled Pain: adequately controlled Airway Patency, RR, SpO2: stable & adequate BP & HR: stable & adequate Hydration State: stable & adequate Anesthetic Complications: no major complications apparent and Pt Satisfied with anesthetic care
--- NOTE | 2020-03-23 00:03 | Operative Report (OR) ---
DATE OF OPERATION: 03/22/2020 ADDENDUM My sociology research assistant helped with prepping, draping, removal of the appendix, and closure of the wounds. I attest to the content of the Intraoperative Record and any orders documented therein. Any exception s are noted below.
[2020-03-23] MEDS ORDERED: HYDROmorphone INJ 0.5 MG/0.5 ML SYR IV PRN (00:16)
[2020-03-23] MEDS ORDERED: HYDROCODONE/ACETAMOPHEN 5/325MG TAB PO PRN ×2 (00:16)
[2020-03-23] MEDS ORDERED: PROMETHAZINE HCL 12.5 MG in SODIUM CHLORIDE 0.9% 50 ML IV PRN (00:16)
[2020-03-23] MEDS ORDERED: HYDROmorphone INJ 1 MG/ML SYRINGE IV PRN (00:16)
[2020-03-23] MEDS ORDERED: PROMETHAZINE HCL 25 MG in SODIUM CHLORIDE 0.9% 50 ML IV PRN (00:16)
[2020-03-23] MEDS ORDERED: ONDANSETRON INJ 2 MG/ML 2 ML VIAL IV PRN (00:16)
[2020-03-23] MEDS ORDERED: ONDANSETRON INJ 2 MG/ML 2 ML VIAL ONE (00:35)
[2020-03-23] MEDS: SODIUM CHLORIDE 0.9% 1000ML 1,000 ML IV SCH ×2 (00:45→13:09)
--- NOTE | 2020-03-23 06:24 | Surgery Progress Note ---
Date of Service March 23, 2020 Assessment & Plan (1) History of laparoscopic appendectomy: Patient with some nausea during the evening Overall vitals are stable Labs are pending We will plan on keeping the patient in the hospital today [place] her diet and activity Continue IV medications and antibiotics Results & Data Vital Signs (Past 12 Hours) Vital Signs Temp Pulse Pulse Resp BP BP Pulse Ox 03/23/20 03:25 36.7 C 14 103/68 94 03/23/20 02:10 36.7 C 81 18 109/71 94 03/23/20 01:10 36.6 C 66 18 105/66 95 03/23/20 00:40 36.5 C 64 18 109/69 95 03/22/20 23:54 36.5 C 60 18 106/65 96 03/22/20 23:45 36.2 C L 59 L 18 108/58 L 96 03/22/20 23:40 36.6 C 58 L 18 107/62 95 03/22/20 23:35 64 102/60 95 03/22/20 23:29 36.4 C L 60 18 105/62 96 03/22/20 20:40 88 20 03/22/20 20:30 92 H 21 146/90 H 95 03/22/20 20:20 92 H 16 97 03/22/20 20:12 84 85 21 140/84 03/22/20 20:11 75 15 140/84 03/22/20 19:00 78 16 03/22/20 18:50 81 16 03/22/20 18:46 77 17 03/22/20 18:44 83 20 137/79 96 03/22/20 18:43 90 19 137/79 PG Care Time/CCT Total # of Minutes Spent Total Time Spent with Patient: Total time spent is greater than 50% in coordination of care (as documented) at patient's floor/unit and/or counseling patient: Coding Level of Care Code None Diagnoses History of laparoscopic appendectomy Z90.49
[2020-03-23 06:32] LABS: Albumin Level 3.1 gm/dl (3.4-5.0); BUN Creatinine Ratio 14.9 (10-20); Calcium 8.6 mg/dl (8.5-10.1); Creatinine Clr Calc Pharmacy 59.3 ml/min; Est GFR (African American) 67.2; Potassium 3.9 mmol/L (3.5-5.1)
[2020-03-23 06:35] LABS: Albumin Globulin Ratio 0.9 (0.9-2); Bilirubin,Total 1.3 mg/dl (0.2-1); Globulin 3.6 gm/dl (2.5-4.0); Phosphorus 3.1 mg/dl (2.5-4.9); Total Protein 6.7 gm/dl (6.4-8.2)
[2020-03-23 07:03] LABS: Basophils # (auto) 0.01 K/uL (0-0.2); Basophils % (auto) 0.1 %; Hematocrit (blood only) 39.5 % (37-47); Hemoglobin 13.4 g/dL (12.0-16.0); Immature Granulocytes # (auto) 0.03 K/uL (0.00-0.02); Immature Granulocytes % (auto) 0.2 %; Lymphocytes # (auto) 0.76 K/uL (1.2-3.4); Lymphocytes % (auto) 5.7 %; Mean Corpuscular Hemoglobin 29.6 pg (25-34); Mean Corpuscular Volume 87.2 fL (80-100); Mean Platelet Volume 9.2 fL (7.4-10.4); Monocytes # (auto) 0.37 K/uL (0.11-0.59); Monocytes % (auto) 2.8 %; Neutrophils # (auto) 12.24 K/uL (1.4-6.5); Neutrophils % (auto) 91.2 %; Platelet Count 239 K/uL (130-400); RDW Coefficient of Variation 13.4 % (11.5-14.5); Red Blood Count 4.53 M/uL (4.2-5.4); White Blood Count 13.41 K/uL (4.8-10.8)
[2020-03-23 07:07] LABS: Mean Corpuscular Hgb Conc 33.9 g/dL (32-36)
--- NOTE | 2020-03-23 17:06 | Electrocardiogram Report ---
Test Reason : Blood Pressure : / mmHG Vent. Rate : 083 BPM Atrial Rate : 083 BPM P-R Int : 146 ms QRS Dur : 082 ms QT Int : 388 ms P-R-T Axes : 037 -13 020 degrees QTc Int : 455 ms Normal sinus rhythm Low voltage QRS Borderline ECG When compared with ECG of 21-OCT-2016 08:23, No significant change was found Confirmed by Michael Leigh ([id number]) on 03/23/2020 5:05:40 PM Referred By: Ada Pulido Confirmed By:Michael Leigh
--- NOTE | 2020-03-27 20:09 | Discharge Summary (DS) ---
PRINCIPAL DIAGNOSIS: Acute appendicitis. PROCEDURES: The patient underwent laparoscopic appendectomy. HISTORY OF PRESENT ILLNESS: The patient is a 64-year-old female presenting to the Emergency Room with acute abdominal pain and found on workup to have acute appendicitis. On 03/22/2020, she was taken to the operating room where she underwent laparoscopic appendectomy, which she did tolerate well and did well overnight. She felt stable the next day and was tolerating diet and activity to be discharged home to be followed in the surgical clinic within 1-2 weeks.
== END 2020-03-23 14:28 | disposition home or self-care (01) ==
LOC: ED 17:32 → OR 20:56 → 3N 22:52 → INTOOBSV 22:52